=== PATIENT | female | born 1930 | race Caucasian/White ===

== ENCOUNTER 2017-04-11 18:39 | Inpatient (IN) | payer MEDICARE ==
[~2017-04-11] VITALS: Ht 157.5 cm; Wt 64.4 kg
[~2017-04-11 18:39] MED LIST: AMLO10TA2 PO; ASPI-630 PO; ATOR40TA59 PO; CELE200C PO; CHLO25TA PO; HYDR-971 PO; LEVO50TA5 PO
--- NOTE | 2017-04-11 19:11 | PHYS DOC ---
Past History Past Medical History: CAD, Hypertension, Hypothyroid Past Surgical History: Knee Replacement, Other Smoking: Non-smoker Alcohol Use: None Drug Use: None Adult General Chief Complaint Chief Complaint: WEAKNESS/GENERALIZED HPI HPI Patient is a 86 year old female who presents with dizziness and weakness for the past 2 days. Patient states she woke up yesterday feeling dizzy and did not like the bed and therefore saw her family doctor's nurse practitioner and was diagnosed vertigo and sent home. The dizziness has persisted and therefore family brought her the emergency room to be evaluated. Patient has associated nausea and vomiting. Patient denies fevers. Patient states the dizziness is positional and when she lays down she feels fine however when she gets up she feels the room moving and unsteady on her feet. Patient had episode of this around and she ended up falling and breaking her ankle. Patient denies any chest pain or shortness of breath. Patient has no other complaints. Pertinent findings: Heart regular rate and rhythm Lungs clear to auscultation bilaterally ED course: Patient is seen upon arrival a CBC, CMP, UA, troponin, EKG, chest x-ray, CT of the head without contrast was ordered 2044: Patient was reevaluated and still dizzy when she sits up, discussed lab results and radiological results with the patient and plan to admit. 2055: Discussed CC/HP/PMH with Dr. Watkins and recommends admit also would like neurology consultation Pertinent findings: Potassium 2.9 CT scan of head unremarkable MDM: After reviewing the chart, CC/HPI/PMH, physical exam, lab results, radiological results, I believe the patient needs to be admitted to the hospital for persistent dizziness and hypokalemia. Replace the potassium starting the emergency room with 40 mEq by mouth and will admit the patient for further evaluation. Review of Systems Review of Systems Constitutional: Weakness, dizziness Eyes: Denies change in visual acuity, redness, or eye pain [] HENT: Denies nasal congestion or sore throat [] Respiratory: Denies cough or shortness of breath [] Cardiovascular: No additional information not addressed in HPI [] GI: Nausea and vomiting : Denies dysuria or hematuria [] Musculoskeletal: Denies back pain or joint pain [] Integument: Denies rash or skin lesions [] Current Medications Current Medications Current Medications Medications (Trade) Dose Ordered Sig/Martin Start Time Stop Time Status Last Admin Dose Admin Meclizine HCl (Antivert) 25 mg 1X ONCE 04/11/17 19:15 04/11/17 19:16 Sodium Chloride 1,000 ml @ 1,000 mls/hr 1X ONCE 04/11/17 19:15 04/11/17 20:14 UNV Allergies Allergies Allergies Coded Allergies Type Severity Reaction Last Updated Verified pregabalin Allergy Intermediate 10/20/16 Yes Physical Exam Physical Exam Constitutional: Well developed, well nourished, no acute distress, non-toxic appearance. [] HENT: Normocephalic, atraumatic, bilateral external ears normal, oropharynx moist, no oral exudates, nose normal. [] Eyes: PERRLA, EOMI, conjunctiva normal, no discharge. [] Neck: Normal range of motion, no tenderness, supple, no stridor. [] Cardiovascular:Heart rate regular rhythm, no murmur [] Lungs & Thorax: Bilateral breath sounds clear to auscultation [] Abdomen: Bowel sounds normal, soft, no tenderness, no masses, no pulsatile masses. [] Skin: Warm, dry, no erythema, no rash. [] Back: No tenderness, no CVA tenderness. [] Extremities: No tenderness, no cyanosis, no clubbing, ROM intact, no edema. [] Neurologic: Alert and oriented X 3, normal motor function, normal sensory function, no focal deficits noted. [] Psychologic: Affect normal, judgement normal, mood normal. [] Current Patient Data Lab Results Laboratory Tests Test 04/11/17 19:45 04/11/17 20:15 04/11/17 20:37 White Blood Count 13.4 x10^3/uL (4.0-11.0) Red Blood Count 4.59 x10^6/uL (3.50-5.40) Hemoglobin 14.0 g/dL (12.0-15.5) Hematocrit 41.1 % (36.0-47.0) Mean Corpuscular Volume 89 fL (79-100) Mean Corpuscular Hemoglobin 31 pg (25-35) Mean Corpuscular Hemoglobin Concent 34 g/dL (31-37) Red Cell Distribution Width 14.1 % (11.5-14.5) Platelet Count 294 x10^3/uL (140-400) Neutrophils (%) (Auto) 85 % (31-73) Lymphocytes (%) (Auto) 9 % (24-48) Monocytes (%) (Auto) 5 % (0-9) Eosinophils (%) (Auto) 0 % (0-3) Basophils (%) (Auto) 1 % (0-3) Neutrophils # (Auto) 11.4 x10^3uL (1.8-7.7) Lymphocytes # (Auto) 1.2 x10^3/uL (1.0-4.8) Monocytes # (Auto) 0.6 x10^3/uL (0.0-1.1) Eosinophils # (Auto) 0.0 x10^3/uL (0.0-0.7) Basophils # (Auto) 0.1 x10^3/uL (0.0-0.2) Sodium Level 133 mmol/L (136-145) Potassium Level 2.9 mmol/L (3.5-5.1) Chloride Level 94 mmol/L (98-107) Carbon Dioxide Level 29 mmol/L (21-32) Anion Gap 10 (6-14) Blood Urea Nitrogen 17 mg/dL (7-20) Creatinine 0.7 mg/dL (0.6-1.0) Estimated GFR (Cockcroft-Gault) 79.5 BUN/Creatinine Ratio 24 (6-20) Glucose Level 115 mg/dL (70-99) Calcium Level 9.2 mg/dL (8.5-10.1) Total Bilirubin 1.2 mg/dL (0.2-1.0) Aspartate Amino Transf (AST/SGOT) 16 U/L (15-37) Alanine Aminotransferase (ALT/SGPT) 15 U/L (14-59) Alkaline Phosphatase 111 U/L (46-116) Troponin I Quantitative < 0.017 ng/mL (0-0.055) Total Protein 7.3 g/dL (6.4-8.2) Albumin 3.6 g/dL (3.4-5.0) Albumin/Globulin Ratio 1.0 (1.0-1.7) Urine Collection Type Unknown Urine Color Yellow Urine Clarity Clear Urine pH 7.0 Urine Specific [place] 1.015 Urine Protein Trace (NEG-TRACE) Urine Glucose (UA) Neg mg/dL (NEG) Urine Ketones (Stick) 15 mg/dL (NEG) Urine Blood Neg (NEG) Urine Nitrite Neg (NEG) Urine Bilirubin Neg (NEG) Urine Urobilinogen Dipstick 1 mg/dL (0.2 mg/dL) Urine Leukocyte Esterase Trace (NEG) Urine RBC 1-2 /HPF (0-2) Urine WBC 1-4 /HPF (0-4) Urine Squamous Epithelial Cells Few /LPF Urine Bacteria Few /HPF (0-FEW) EKG EKG Normal sinus rhythm rate of 65 and no STEMI Radiology/Procedures Radiology/Procedures CXR: NAD CT head wo: NAD Course & Med Decision Making Course & Med Decision Making Pertinent Labs and Imaging studies reviewed. (See chart for details) [] Dragon Disclaimer Dragon Disclaimer This chart was dictated in whole or in part using Voice Recognition software in a busy, high-work load, and often noisy Emergency Department environment. It may contain unintended and wholly unrecognized errors or omissions. Departure Departure: Impression: Primary Impression: Dizziness Additional Impression: Hypokalemia Disposition: ADMITTED INPATIENT Admitting Physician: Sushila Watkins Condition: STABLE Referrals: ALINE MONTANEZ MD (PCP) Problem Qualifiers TISHA SHULTZ DO April 11, 2017 19:11
[2017-04-11] MEDS ORDERED: MECLIZINE 25 MG TABLET PO ONE (19:15)
[2017-04-11] MEDS ORDERED: IV NORMAL SALINE 1,000ML 1,000 ML IV ONE (19:15)
--- NOTE | 2017-04-11 19:17 | EKG ---
[address] [address] Test Date: 2017-04-11 Test Time: 19:15:43 Pat Name: SAMANTHA GOTTI Department: Room: Gender: F [employer] Associate: : 1930 Requested By: TISHA SHULTZ Order Number: [id number] Reading MD: Manpreet Villafana Measurements Intervals [place] Rate: 65 P: 42 [place]: 182 QRS: -28 QRSD: 96 T: 50 QT: 410 QTc: 427 Interpretive Statements SINUS RHYTHM LEFTWARD AXIS Electronically Signed On 04-16-2017 9:43:10 CDT by Manpreet Villafana
[2017-04-11 20:00] LABS: BASO # 0.1 x10^3/uL (0.0-0.2); BASO % 1 % (0-3); EOS % 0 % (0-3); HEMATOCRIT 41.1 % (36.0-47.0); LYMPH # 1.2 x10^3/uL (1.0-4.8); LYMPH % 9 % (24-48); MEAN CORPUSCULAR HEMOGLOBIN 31 pg (25-35); MEAN CORPUSCULAR HGB CONC 34 g/dL (31-37); MEAN CORPUSCULAR VOLUME 89 fL (79-100); MONO # 0.6 x10^3/uL (0.0-1.1); MONO % 5 % (0-9); NEUT # 11.4 x10^3uL (1.8-7.7); NEUT % 85 % (31-73); PLATELET COUNT 294 x10^3/uL (140-400); RED BLOOD COUNT 4.59 x10^6/uL (3.50-5.40); RED CELL DISTRIBUTION WIDTH 14.1 % (11.5-14.5); WHITE BLOOD COUNT 13.4 x10^3/uL (4.0-11.0)
--- NOTE | 2017-04-11 20:20 | RAD ---
CT HEAD WO CONTRAST History: [id number] dizziness, hypertension, TIA. Comparison: None available at this time. Technique: Noncontrast [address] images were acquired from the skull base to the vertex. Exposure: One or more of the following individualized dose reduction techniques were utilized for this examination: 1. Automated exposure control 2. Adjustment of the mA and/or kV according to patient size 3. Use of iterative reconstruction technique. Findings: There is motion degradation. No convincing acute extra-axial or parenchymal hemorrhage is identified. There is no significant intra-axial mass effect, midline shift, or extra-axial fluid collection. The barrett-white differentiation of the major vascular territories is preserved. Ventricular size is considered within normal limits. Cerebral volume can be considered within normal limits for patient's age. There is mild ill-defined low-density centers near the frontal horns bilaterally. There has been lens surgery bilaterally. There is atherosclerotic calcification of the carotid siphons bilaterally. The mastoid air cells and the visualized paranasal sinuses are aerated. No acute calvarial abnormality is identified. Impression: 1. No acute intracranial abnormality is identified. If there is concern for evolving or acute ischemia, followup CT or MRI could be beneficial. Mild ill-defined low density of the supratentorial white matter is nonspecific although most commonly due to chronic microvascular ischemic disease in a patient this age. Electronically signed by: Vincent Costello MD (04/11/2017 8:17 PM)
[2017-04-11 20:46] LABS: ALBUMIN 3.6 g/dL (3.4-5.0); CALCIUM 9.2 mg/dL (8.5-10.1); CREATININE 0.7 mg/dL (0.6-1.0); GFR 79.5; TOTAL BILIRUBIN 1.2 mg/dL (0.2-1.0); TOTAL PROTEIN 7.3 g/dL (6.4-8.2)
[2017-04-11 20:48] LABS: POTASSIUM 2.9 mmol/L (3.5-5.1)
[2017-04-11 21:02] LABS: BILIRUBIN,URINE NEG (NEG); CLARITY,URINE CLEAR; COLOR,URINE YELLOW; GLUCOSE,URINE NEG (NEG)
[2017-04-11 21:03] LABS: BACTERIA,URINE FEW /HPF (0-FEW); NITRITE,URINE NEG (NEG); SQUAMOUS EPITHELIAL CELL,UR FEW /LPF; UROBILINOGEN,URINE 1 mg/dL (0.2 mg/dL)
[2017-04-11] MEDS ORDERED: POTASSIUM CHLORIDE 20 MEQ TABLET.ER. PO ONE ×2 (21:14→21:15)
[2017-04-11] MEDS ORDERED: ONDANSETRON PF 4 MG/2 ML VIAL. IV PRN (21:15)
[2017-04-11] MEDS ORDERED: ACETAMINOPHEN 325 MG TABLET PO PRN (21:15)
[2017-04-11] MEDS ORDERED: MORPHINE SULFATE 2 MG/ML DISP.SYRIN. IV PRN (21:15)
[2017-04-11 22:00] VITALS: BP 153/86
[2017-04-11] MEDS: ATORVASTATIN CALCIUM 20 MG TABLET PO SCH (22:00)
[2017-04-11] MEDS ORDERED: MECL25TA3 PO (22:02)
[2017-04-11] MEDS ORDERED: HYDROcodone/APAP 5/325MG 1 TAB TABLET PO PRN (22:15)
[2017-04-12] VITALS (7 sets, daily range): BP systolic 102–148; BP diastolic 54–68
--- NOTE | 2017-04-12 03:14 | ACF ---
Admission Criteria Forms HYPONATREMIA; HYPERNATREMIA; HYPOKALEMIA; HYPERKALEMIA; HYPOCALCEMIA; HYPERCALCEMIA Clinical Indications for Inpatient Care (Place 'X' for any and all applicable criteria): Ongoing inpatient care may be indicated for ANY ONE of the following [G](1)(2)(3 )(5): [ ]I. Hyponatremia with ANY ONE of the following: [ ]a) Sodium less than 130 mEq/L (mmol/L) (new) (6)(22) [ ]b) Sodium less than 135 mEq/L (mmol/L) with ANY ONE of the following: [ ]i) Severe medical etiology requiring inpatient management (eg, heart failure, hypovolemia) [ ]ii) Altered mental status [ ]iii) Seizures [ ]II. Hypernatremia with ANY ONE of the following: [ ]a) Sodium greater than 155 mEq/L (mmol/L) [ ]b) Sodium greater than 150 mEq/L (mmol/L) with ANY ONE of the following: [ ] i) Altered mental status [ ]ii) Seizures [ ]iii) Severe medical etiology (eg, hypovolemia, diabetes insipidus) [ ]iv) Severe weakness [ ]v) Severe medical etiology (eg, hemolysis, infection, drug overdose) [X ]III. Hypokalemia with ANY ONE of the following: [ ]a) Potassium less than 2.5 mEq/L (mmol/L) despite outpatient and emergency treatment [X ]b) Potassium less than 3.0 mEq/L (mmol/L) with ANY ONE of the following: [X ]i) Weakness [ ]ii) Cardiac abnormality (eg, arrhythmia, conduction disturbance) [ ]iii) Cardiac ischemia [ ]iv) Ileus [ ]v) Ongoing medical cause requiring inpatient management. ( e.g., acute renal wasting, SIADH) [ ]vi) Other severe symptoms [ ] IV. Hyperkalemia with ANY ONE of the following: [ ]a) Potassium greater than 6.5 mEq/L (mmol/L) [ ]b) Potassium greater than 5 mEq/L (mmol/L) with ANY ONE of the following: [ ]i) Severe ECG findings [H] [ ]ii) Acute worsening of renal failure (creatinine greater than 2.5 mg/dL (221 micromoles/L) or significant elevation for age and size) [ ] V. Hypocalcemia with ANY ONE of the following: [ ]a) Calcium less than 7 mg/dL (1.75 mmol/L) despite outpatient and emergency treatment(19) [ ]b) Calcium less than 8 mg/dL (2 mmol/L) with significant symptoms or findings; examples include: [ ]i) Cardiac abnormality (eg, arrhythmia or conduction disturbance) [ ]ii) Altered mental status [ ]iii) Seizures [ ]iv) Breathing difficulty [ ]v) Muscle spasms [ ]. Hypercalcemia with ANY ONE of the following: [ ]a) Calcium greater than 14 mg/dL (3.5 mmol/L) [ ]b) Calcium greater than 12 mg/dL (3 mmol/L) with ANY ONE of the following: [ ]i) Significant dehydration or hypovolemia as indicated by ANY ONE of the following(2): [ ]1. Clinically significant dehydration as indicated by ANY ONE of the following: [ ]A. Acute loss of weight from baseline (5% of body weight in adults, 9% in pediatric patients) [ ]B. Hemodynamic instability [ ]C. Acute renal failure [ ]D. Serum sodium greater than 150 mEq/L (mmol/L) [ ]2) Dehydration that is persistent indicated by ALL of the following: [ ]A. Oral rehydration therapy not tolerated or insufficient to adequately correct dehydration [ ]B. Appropriate intravenous treatment (eg, fluids ) does not readily correct dehydration ie, after 12 to 24 hours of treatment) [ ]ii) Significant symptoms or findings; examples include: [ ]1) Altered mental status [ ]2) Cardiac abnormality (eg, arrhythmia, conduction disturbance) [ ]3) Cardiac abnormality (eg, arrhythmia, conduction disturbance) The original [facility] content created by [facility] [employer] has been revised. The portions of the content which have been revised are identified through the use of italic text or in bold, and [facility] has neither reviewed nor approved the modified material. All other unmodified content is copyright [facility] Please see references footnoted in the original [facility] [employer] edition 2016 Admission Criteria Met?: Yes TAMICA GUPTA April 12, 2017 03:14
[2017-04-12] MEDS: LEVOTHYROXINE 25 MCG TABLET. PO SCH (06:02)
[2017-04-12 06:21] LABS: BASO # 0.1 x10^3/uL (0.0-0.2); BASO % 1 % (0-3); EOS # 0.1 x10^3/uL (0.0-0.7); EOS % 1 % (0-3); HEMATOCRIT 36.7 % (36.0-47.0); HEMOGLOBIN 12.5 g/dL (12.0-15.5); LYMPH # 1.9 x10^3/uL (1.0-4.8); LYMPH % 23 % (24-48); MEAN CORPUSCULAR HEMOGLOBIN 31 pg (25-35); MEAN CORPUSCULAR HGB CONC 34 g/dL (31-37); MEAN CORPUSCULAR VOLUME 91 fL (79-100); MONO # 0.7 x10^3/uL (0.0-1.1); MONO % 9 % (0-9); NEUT # 5.4 x10^3uL (1.8-7.7); NEUT % 66 % (31-73); PLATELET COUNT 247 x10^3/uL (140-400); RED BLOOD COUNT 4.02 x10^6/uL (3.50-5.40); RED CELL DISTRIBUTION WIDTH 14.3 % (11.5-14.5); WHITE BLOOD COUNT 8.2 x10^3/uL (4.0-11.0)
[2017-04-12 06:26] LABS: CREATININE 0.6 mg/dL (0.6-1.0); POTASSIUM 3.8 mmol/L (3.5-5.1)
--- NOTE | 2017-04-12 08:13 | RAD ---
Indication dizzy. Suspect CVA. Protocol exam. PA and lateral views of the chest were obtained. Comparison is made to an examination 08/16/2013. The heart and pulmonary vessels appear normal. The lungs are clear of acute infiltrates. There has not been a significant change in the appearance of the chest compared to the previous exam. IMPRESSION: No acute or focal process. No significant change
[2017-04-12] MEDS: CELECOXIB 200 MG CAPSULE PO SCH (08:24)
[2017-04-12] MEDS: ASPIRIN 81 MG TAB.CHEW PO SCH (08:24)
[2017-04-12] MEDS: MECLIZINE 25 MG TABLET PO SCH ×3 (08:24→21:07)
[2017-04-12] MEDS: amLODIPine BESYLATE 10 MG TABLET PO SCH (08:24)
[2017-04-12] MEDS: CHLORTHALIDONE 25 MG TABLET PO SCH (08:25)
[2017-04-12] MEDS ORDERED: PRIMIDONE 50 MG TABLET PO ONE (10:30)
--- NOTE | 2017-04-12 14:59 | CONS ---
DATE OF CONSULTATION: 04/12/2017 NEUROLOGIC CONSULTATION REFERRING PHYSICIAN: Sushila Watkins MD REASON FOR CONSULTATION: Severe dizziness. HISTORY OF PRESENT ILLNESS: This is an 86-year-old right-handed female who was admitted to Emergency Room yesterday after she presented with 2-day history of dizziness described as "spinning." The dizzy spell was associated with nausea and vomiting. She was initially seen in the primary care physician's office and she was diagnosed with vertigo and sent home, but because of continuation of dizziness and nausea, the patient went to Emergency Room and got admitted. The patient stated her dizziness usually aggravated by changing her body positions quickly from sitting to standing. She would have dizzy spells in upright positions. She never had any dizzy spell when she sits or lies down in bed. She denies headaches, visual disturbances, chest pain, shortness of breath or palpitation, dysarthria or dysphagia. She also complains of generalized weakness and she related that to multiple problems including osteoarthritis and osteoporosis along with left hip replacement and bilateral total knee replacements as well. The patient denies any recent falls; however, she did have a fall last year, presented with fracture of the left ankle. Initial head CT scan revealed no evidence of acute intracranial process, but shows mild chronic small vessel ischemic changes. Today, the patient stated her dizzy spells has somewhat improved after she received meclizine; however, she continues to have imbalance on upright positions. PAST MEDICAL HISTORY: Significant for hypertension, hyperlipidemia, hypothyroidism, osteoarthritis and osteoporosis. PAST SURGICAL HISTORY: Consistent with left hip fracture repair and bilateral total knee replacements. SOCIAL HISTORY: The patient lives independently. She denies smoking, alcohol drinking, or illicit drugs. She drives. FAMILY HISTORY: Her brother had tremor of the hands and 2 sisters had dementia of Alzheimer type. CURRENT HOME MEDICATIONS: Amlodipine 10 mg daily, aspirin 81 mg daily, Lipitor 40 mg daily, Celebrex 20 mg daily, hydrochlorothiazide 25 mg daily, hydrocodone and acetaminophen 5/325 p.r.n., levothyroxine 50 mcg daily and currently, the patient was placed on meclizine 25 mg t.i.d. ALLERGIES: PREGABALIN. REVIEW OF SYSTEMS: A 10-point review of system was performed and consistent with unsteady stance, dizziness, and tremor of the head, joint pain. PHYSICAL EXAMINATION: GENERAL: Well-developed, well-nourished white female, not in acute distress. She weighs 140 pounds. VITAL SIGNS: Blood pressure 126/65, respiratory rate 20, pulse is 75, oxygen saturation 96% on room air and temperature 98.3. HEENT: Normocephalic, atraumatic, otherwise unremarkable. NECK: Supple. Negative for carotid bruit, lymphadenopathy or thyromegaly. LUNGS: Clear to A and P. CARDIOVASCULAR: Regular rate and rhythm, normal S1, S2. There is no S3, S4 or murmur. ABDOMEN: Soft. Bowel sounds positive. EXTREMITIES: Negative for cyanosis, clubbing or pitting edema. NEUROLOGIC: 1. MENTAL STATUS: The patient is alert and oriented x 3. Speech is fluent. There is no language dysfunction. The patient recalls 2/3 immediately and after 1 and 3 minutes. Judgment and abstract thinking are normal. The patient denies hallucination or delusion. 2. CRANIAL NERVES: Visual farris are full. The pupils are reactive to light and accommodation. The extraocular movements are intact. There is no nystagmus. There is no facial motor or sensory deficit. Hearing is intact bilaterally. The palate is elevated symmetrically. Sternocleidomastoid muscles are powerful bilaterally. The patient shrugs her shoulders symmetrically and protrudes her tongue in the midline without fasciculation or atrophy. 3. MOTOR EXAMINATION: No focal muscle bulk was seen. The tone is normal. The strength is 5/5 throughout. The patient had constant head tremor. She does not have postural, resting or kinetic tremors of the upper extremities. Sensory examination revealed diminished pinprick and light touch senses in both lower extremities below the knee. Deep tendon reflexes are symmetric and active with absent Achilles responses bilaterally. Gait: The stance is unsteady. Romberg's sign was present bilaterally. The patient has abnormal tandem gait. Coordination: The patient has normal [id number]-mpax and [id number]. IMAGING: Chest x-ray revealed no evidence of acute cardiopulmonary process and head CT scan revealed no evidence of acute intracranial process but shows mild small vessel ischemic changes. LABORATORY DATA: CBC revealed white blood cells of 8200, hemoglobin 12.5, hematocrit 36.7 and platelet count 247,000. Chemistry revealed sodium of 136, potassium 3.8, chloride 99, CO2 of 29, BUN 14, creatinine 0.6, glucose 84 and calcium is 9. Urinalysis, trace of urinary leukocyte esterase with normal white blood cells and few bacteria. IMPRESSION: 1. Acute vertigo. Differential diagnosis includes vestibulitis versus paroxysmal benign positional vertigo. 2. 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 3. Multiple medical problems include hypertension, hyperlipidemia, hypothyroidism, osteoarthritis and osteoporosis. RECOMMENDATIONS: 1. Continue with current management initiated by Dr. Watkins including meclizine, bedrest, physical therapy as tolerated. 2. Start the patient on primidone for head tremor at 50 mg at bedtime. 3. We will obtain orthostatic changes and encourage fluid intake. M Alexa CORONA MD DR: FAYE/yvonne JOB#: [id number] / [id number]
--- NOTE | 2017-04-12 19:44 | HP ---
ADMIT DATE: 04/12/2017 HISTORY OF PRESENT ILLNESS: The patient is an 86-year-old female patient who came to the Emergency Room with a complaint of dizziness and weakness for the past 2 days. She states that she woke up feeling dizzy, did not like the bed and therefore saw her family doctor's nurse practitioner, diagnosed with vertigo and was sent home. The dizziness has persisted and therefore, her family brought her to the Emergency Room for evaluation. She said that she feel the things are spinning around. She has also some nausea and vomiting, but denied any fever. Her dizziness is positional; when she lies down, she feels fine. However, when she gets up, she feels the room is moving and unsteady on her feet. She had a similar episode around Thanksgiving and she ended up falling and breaking her ankle. She denied any chest pain, shortness of breath, orthopnea, paroxysmal nocturnal dyspnea. Denied any cough, phlegm, or hemoptysis. She was extensively evaluated in the Emergency Room and was admitted for further evaluation and to consult the neurologist. PAST MEDICAL HISTORY: Significant for hypertension, hyperlipidemia, hypothyroidism. She had an episode of transient ischemic attack about 4 years ago and she is known to have generalized osteoarthritis. PAST SURGICAL HISTORY: Significant for left total hip arthroplasty, bilateral total knee arthroplasty, tonsillectomy, and appendectomy. ALLERGIES: She is allergic to LYRICA. MEDICATIONS: She is currently on following medications: Amlodipine 10 mg once a day, aspirin 81 mg once a day, atorvastatin calcium 40 mg at bedtime, Celebrex 100 mg once a day, chlorthalidone 25 mg once a day, hydrocodone/APAP 5/325 one tablet every 6 hours, levothyroxine sodium 25 mcg once a day, and meclizine 25 mg 3 times a day. FAMILY HISTORY: One sister in her 70s because of cerebrovascular accident. Her brother also at the age of 70 because of complication of obesity and cerebrovascular accident. Mother at the age of 60 again with stroke and father at age of 69 because of stroke. SOCIAL HISTORY: She is . She has 1 daughter. She has never smoked, drank alcohol, or used any illicit drugs. 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 REVIEW OF SYSTEMS: She denied any blurring of vision, cataract, glaucoma, or macular degeneration. Denied any earache, tinnitus, or sensorineural deafness. Denied any nosebleeds, stuffy nose, or postnasal drip. Denied any sore throat, sore tongue, toothache, hoarseness of voice, or difficulty swallowing. Did complain of some nausea and vomiting, but denied any diarrhea or constipation. Denied any hematemesis, melena, or hematochezia. Denied any dysuria, frequency, or hematuria. Denied any chest pain, shortness of breath, orthopnea, paroxysmal nocturnal dyspnea. Denied any cough, phlegm, or hemoptysis. PHYSICAL EXAMINATION: GENERAL: On arrival to the Emergency Room, she looked well and was clearly in no apparent respiratory distress. She was somewhat pale, but no jaundice, cyanosis, or thyromegaly. No jugular venous distention. No limb edema. VITAL SIGNS: Her heart rate was 69, blood pressure was 124/72, temperature was 98, respiratory rate was 20, and oxygen saturation was 96% on room air. HEAD, EYES, EARS, NOSE AND THROAT: Showed normocephalic, atraumatic. NECK: Supple. HEART: Showed normal first and second heart sounds with no gallop, rub or murmur. CHEST: Clear to auscultation. No crepitation or rhonchi. ABDOMEN: Distended, soft, nontender. No guarding... DICTATION ENDS HERE ELENA DOCKERY MD DR: MALIA/yvonne JOB#: [id number] / [id number]
[2017-04-12] MEDS: PRIMIDONE 50 MG TABLET PO SCH ×2 (21:00→21:07)
[2017-04-12] MEDS: POTASSIUM CHLORIDE 20 MEQ TABLET.ER. PO SCH (21:07)
[2017-04-12] MEDS: ATORVASTATIN CALCIUM 20 MG TABLET PO SCH (21:07)
[2017-04-13] MEDS: LEVOTHYROXINE 25 MCG TABLET. PO SCH (05:26)
[2017-04-13 05:30] VITALS: BP 111/63
[2017-04-13 06:06] LABS: CALCIUM 8.7 mg/dL (8.5-10.1); CREATININE 0.6 mg/dL (0.6-1.0); POTASSIUM 3.3 mmol/L (3.5-5.1)
[2017-04-13] MEDS: ASPIRIN 81 MG TAB.CHEW PO SCH (08:34)
[2017-04-13] MEDS: POTASSIUM CHLORIDE 20 MEQ TABLET.ER. PO SCH (08:34)
[2017-04-13] MEDS: amLODIPine BESYLATE 10 MG TABLET PO SCH (08:34)
[2017-04-13] MEDS: MECLIZINE 25 MG TABLET PO SCH (08:34)
[2017-04-13] MEDS: CELECOXIB 200 MG CAPSULE PO SCH (08:35)
[2017-04-13] MEDS: CHLORTHALIDONE 25 MG TABLET PO SCH (08:35)
--- NOTE | 2017-04-13 10:02 | PN ---
DATE: 04/12/2017 SUBJECTIVE: The patient is resting, slightly propped up in bed, in no apparent respiratory distress. She continues to complain of feeling dizzy, although she has no further episodes of nausea, vomiting. She worked with physical therapy and apparently she continues to be somewhat unsteady. PHYSICAL EXAMINATION: GENERAL: When I examined her this afternoon, she looked well and was clearly in no apparent respiratory distress. VITAL SIGNS: Her heart rate was 77, blood pressure 148/68, temperature was 98, respiratory rate was 20, and oxygen saturation was 95% on room air. HEAD, EYES, EARS, NOSE AND THROAT: Normocephalic, atraumatic. NECK: Supple. HEART: Showed normal first and second heart sounds with no gallop, rub or murmur. CHEST: Clear to auscultation. No crepitation or rhonchi. ABDOMEN: Distended, soft, nontender. No guarding or rigidity. No organomegaly. All hernial orifices intact. Bowel sounds normal. NEUROLOGIC: She is awake, alert, responding appropriately. Cranial nerves intact. She moves extremities without difficulty. She ambulates with assistance. Her intake was 1100, output was 300. LABORATORY DATA: Her lab work as of this morning showed that her white cell count is 8200, hemoglobin 12.5, hematocrit 36.7, MCV 91, and platelet count of 247,000. Her chemistry showed a serum sodium 136, potassium 3.8, chloride 99, bicarbonate 29, anion gap of 8, BUN 14, creatinine 0.6, estimated GFR was 95 mL per minute. Her glucose was 84, calcium was 9. ASSESSMENT: Acute labyrinthitis versus benign paroxysmal positional vertigo. PLAN: Continue with her current medication, will probably add potassium supplement as she is on chlorthalidone 25 mg once a day without any potassium supplement and will continue with physical and occupational therapy and we will see how she does tomorrow and if she managed to walk without assistance and if there are no further unsteadiness, she can go home to be followed as an outpatient. ELENA DOCKERY MD DR: MALIA/yvonne JOB#: [id number] / [id number]
[2017-04-13 11:16] VITALS: BP 113/64
[2017-04-13] MEDS ORDERED: POTA20TA4 PO (12:03)
--- NOTE | 2017-04-13 21:34 | DS ---
DATE OF DISCHARGE: 04/13/2017 HOSPITAL COURSE: The patient is an 86-year-old female patient who was admitted with the complaint of dizziness and feeling things spinning around. She also had some nausea and was evaluated in the Emergency Room and had had a CT scan which was unremarkable. Lab work also was unremarkable except marked hypokalemia and it transpired that she is on thiazide diuretics without any potassium supplement. She was started on meclizine and actually she apparently did very well, was seen by Dr. Freeman who apparently was agreeable with this treatment. He added also primidone but the patient did not like the effect of primidone in her and refused to take it. She was evaluated by physical therapy and has done well and has been up and about, walking with a walker without difficulty. She had a walker at home and the decision was made to discharge her home, to follow with the physical therapy as an outpatient. PHYSICAL EXAMINATION: GENERAL: When I examined her today, she was resting flat in bed, in no apparent respiratory distress. No pallor, jaundice, cyanosis, lymphadenopathy, or thyromegaly. No jugular venous distention. No limb edema. VITAL SIGNS: Her heart rate was 62, blood pressure 113/64, temperature was 98.2, respiratory rate was 20, and oxygen saturation was 95%. The rest of clinical examination is unremarkable. LABORATORY DATA: Showed that her sodium was 134, potassium 3.3, chloride 97, bicarbonate 30, anion gap of 7, BUN 14, creatinine was 0.6, estimated GFR was 95 mL per minute and calcium was 8.7. Her white cell count was 8200, hemoglobin was 12.5, hematocrit 36.7, MCV 91, and platelet count of 247,000. DISCHARGE MEDICATIONS: She was discharged home to continue on following medications: Potassium chloride 20 mEq 3 times a day, amlodipine 10 mg once a day, aspirin 81 mg once a day, atorvastatin calcium 40 mg at bedtime, Celebrex 200 mg once a day, chlorthalidone 25 mg once a day, hydrocodone/APAP 5/325 mg one tablet every 6 hours as needed, levothyroxine sodium 50 mcg once a day and meclizine 25 mg 3 times a day. FINAL DISCHARGE DIAGNOSES: Acute labyrinthitis versus benign positional paroxysmal vertigo. The patient has multiple other medical problems including hypertension, hyperlipidemia, hypothyroidism, osteoarthritis and osteoporosis. ELENA DOCKERY MD DR: MALIA/yvonne JOB#: [id number] / [id number]
== END 2017-04-13 13:00 | disposition home or self-care (01) | DRG 149 ==
LOC: ER 18:39 → ICU 21:11
PROVIDERS: ADMIT Internal Medicine; ATTEND Internal Medicine
DX: H81.10 Benign paroxysmal vertigo, unspecified ear (principal); H83.09 Labyrinthitis, unspecified ear; E87.6 Hypokalemia; E03.9 Hypothyroidism, unspecified; E78.5 Hyperlipidemia, unspecified; I10 Essential (primary) hypertension; I25.10 Atherosclerotic heart disease of native coronary artery without angina pectoris; M81.0 Age-related osteoporosis without current pathological fracture; M15.9 Polyosteoarthritis, unspecified; G25.2 Other specified forms of tremor; Z96.653 Presence of artificial knee joint, bilateral; Z96.642 Presence of left artificial hip joint; Z82.0 Family history of epilepsy and other diseases of the nervous system; Z82.3 Family history of stroke; Z86.73 Personal history of transient ischemic attack (TIA), and cerebral infarction without residual deficits; Z88.8 Allergy status to other drugs, medicaments and biological substances; Z79.82 Long term (current) use of aspirin
CPT/HCPCS: 36415; 70450; 71020; 80048; 80053; 81001; 84484; 85027; 87641; 93005; 96360; J2405; J8597; 97112; 97530; 99285-25; J7030

== ENCOUNTER 2019-10-22 09:45 | Inpatient (IN) | payer MEDICARE ==
[~2019-10-22] VITALS: Ht 157.5 cm; Wt 64.6 kg
[~2019-10-22 09:45] MED LIST changes: -AMLO10TA2 PO; +AMLO10TA8 PO; -CHLO25TA PO; +CHLO25TA9 PO; +HYDR-3165 PO; -HYDR-971 PO; +MECL25TA3 PO; +POTA20TA4 PO
[2019-10-22] MEDS ORDERED: IV NORMAL SALINE 1,000ML 1,000 ML IV SCH (10:00)
--- NOTE | 2019-10-22 10:11 | PHYS DOC ---
Past History Past Medical History: Arthritis, GERD, High Cholesterol, Hypertension, Hypothyroid, TIA Past Surgical History: Appendectomy, Tonsillectomy, Other Smoking: Non-smoker Alcohol Use: None Drug Use: None Adult General Chief Complaint Chief Complaint: BACK PAIN OR INJURY [facility] HPI Patient is a 89-year-old female, pleasant, who presents to the emergency department for evaluation. She awakened this morning with left-sided pain, in h er left lower rib area, extending from the posterior/lateral aspect of her left chest wall, extending anteriorly around to the right. It is worsened with deep breathing, and palpation to the affected area. She denies any shortness of breath, or abdominal pain. She has not had any nausea, vomiting, hematuria, or dysuria. She denies any recent cough, or injuries. Deep breathing and palpation of the left side of her chest, as well as movement makes the pain worse. There are no alleviating factors to her symptoms. Review of Systems Review of Systems Constitutional: Denies fever or chills [] Eyes: Denies change in visual acuity, redness, or eye pain [] HENT: Denies nasal congestion or sore throat [] Respiratory: Denies cough or shortness of breath [] Cardiovascular: No additional information not addressed in HPI [] GI: Denies abdominal pain, nausea, vomiting, bloody stools or diarrhea [] : Denies dysuria or hematuria [] Musculoskeletal: Denies back pain or joint pain [] Integument: Denies rash or skin lesions [] Neurologic: Denies headache, focal weakness or sensory changes [] Endocrine: Denies polyuria or polydipsia [] All other systems were reviewed and found to be within normal limits, except as documented in this note. Allergies Allergies Allergies Coded Allergies Type Severity Reaction Last Updated Verified pregabalin Allergy Intermediate 10/20/16 Yes Physical Exam Physical Exam PHYSICAL EXAM: CONSTITUTIONAL: Well developed, well nourished HEAD: normocephalic, atraumatic EENT: PERRL, EOMI. Conjunctivae normal color, sclerae non-icteric; moist mucous membranes. NECK: Supple, non-tender; no meningismus. LUNGS: Lungs CTA, breathing even and unlabored. Normal air movement. HEART: Regular rate and rhythm, no murmur CHEST: No deformity; there is significant tenderness to palpation of the left posterior lateral, lateral, and anterior lateral aspect of the left lower costal margin. There is no rash visible on this area, and the skin itself is not tender. There is no crepitus or other bruising or other abnormality noted. ABDOMEN: The abdomen is soft, and non-tender, no masses or bruits. The left upper quadrant of the abdomen in particular is not particularly tender. EXTREM: Normal ROM; no deformity, no calf tenderness. Normal pulses palpable in all extremities. There is no pedal edema. SKIN: No rash; no diaphoresis NEURO: Alert; normal speech and cognition; CN's grossly intact; strength grossly intact without focal deficit. BACK: No CVA TTP.There is no bony tenderness to palpation of the thoracic or lumbar spine. Current Patient Data Lab Results Laboratory Tests Test 10/22/19 10:10 White Blood Count 11.2 x10^3/uL Red Blood Count 4.24 x10^6/uL Hemoglobin 13.0 g/dL Hematocrit 39.0 % Mean Corpuscular Volume 92 fL Mean Corpuscular Hemoglobin 31 pg Mean Corpuscular Hemoglobin Concent 33 g/dL Red Cell Distribution Width 14.8 % Platelet Count 265 x10^3/uL Neutrophils (%) (Auto) 72 % Lymphocytes (%) (Auto) 19 % Monocytes (%) (Auto) 8 % Eosinophils (%) (Auto) 1 % Basophils (%) (Auto) 0 % Neutrophils # (Auto) 8.0 x10^3uL Lymphocytes # (Auto) 2.1 x10^3/uL Monocytes # (Auto) 0.9 x10^3/uL Eosinophils # (Auto) 0.1 x10^3/uL Basophils # (Auto) 0.0 x10^3/uL Prothrombin Time 10.3 SEC Prothromb Time International Ratio 1.0 Sodium Level 138 mmol/L Potassium Level 3.4 mmol/L Chloride Level 100 mmol/L Carbon Dioxide Level 27 mmol/L Anion Gap 11 Blood Urea Nitrogen 16 mg/dL Creatinine 0.7 mg/dL Estimated GFR (Cockcroft-Gault) 79.0 BUN/Creatinine Ratio 23 Glucose Level 95 mg/dL Calcium Level 9.4 mg/dL Total Bilirubin 0.7 mg/dL Aspartate Amino Transf (AST/SGOT) 18 U/L Alanine Aminotransferase (ALT/SGPT) 17 U/L Alkaline Phosphatase 94 U/L Troponin I Quantitative < 0.017 ng/mL Total Protein 7.2 g/dL Albumin 3.5 g/dL Albumin/Globulin Ratio 0.9 Lipase 101 U/L Current Medications Medications (Trade) Dose Ordered Sig/Martin Route PRN Reason Start Time Stop Time Status Last Admin Dose Admin Diazepam (Valium) 2 mg 1X ONCE PO 10/22/19 10:15 10/22/19 10:16 DC Morphine Sulfate (Morphine 2mg Syringe) 2 mg 1X ONCE IV 10/22/19 10:15 10/22/19 10:14 DC Sodium Chloride 1,000 ml @ 100 mls/hr Q10H IV 10/22/19 10:00 10/22/19 19:59 10/22/19 10:32 Iohexol (Omnipaque 350 Mg/ml) 100 ml 1X ONCE IV 10/22/19 10:15 10/22/19 10:16 DC Info (Do NOT chart on this entry -- for MONITORING) 1 each PRN DAILY PRN MC SEE COMMENTS 10/22/19 10:15 10/24/19 10:14 Fentanyl Citrate (Fentanyl 2ml Vial) 50 mcg 1X ONCE IVP 10/22/19 10:15 10/22/19 10:17 DC 10/22/19 10:43 EKG EKG Normal sinus rhythm at a rate of 62 beats for minute, left axis deviation, normal intervals. There are no acute ischemic ST/T changes present. Frequent APCs with a compensatory pause are present.[] Radiology/Procedures Radiology/Procedures PROCEDURE: CT ANGIO CHEST W ABD PEL W/ Clinical Indication: Atraumatic left-sided pleuritic chest pain. PE protocol axial CTA images of the chest was performed along with routine contrast imaging of the abdomen pelvis after the administration of 100 cc Isovue 370. Coronal and sagittal MIP images of the pulmonary arteries are available. Comparison: None. Findings: The partially visualized thyroid gland is normal in appearance. The heart is enlarged. There is calcific coronary artery disease. The descending thoracic aorta measures 4 cm. The great vessel origins are unremarkable in appearance. The descending thoracic aorta is normal. No mediastinal, hilar, or axillary adenopathy is seen. No pneumothorax effusion airspace disease or interstitial disease identified. There is bibasilar atelectasis. In the right lower lobe in the posterior segment there is a small partially obstructive filling defect in the pulmonary artery. Additionally there is a focal filling defect in the superior left upper lobe segment. Liver, gallbladder, adrenals, kidneys and pancreas are unremarkable. The spleen is atrophic. The stomach, small and large bowel are nondistended. No evidence of pathologic wall thickening. Multiple calcified degenerated fibroid identified in the uterus. There are multiple sigmoid diverticula without diverticulitis. There is a small hiatal hernia. Abdominal aorta is densely calcified without significant stenosis or aneurysmal dilation. No radiologically significant retroperitoneal or mesenteric lymphadenopathy. Patient status post total left hip arthroplasty. There is diffuse mild degenerative change of the thoracolumbar spine. Bony structures otherwise unremarkable in appearance. Impression: 1. Right lower lobe and left upper lobe subsegmental nonobstructive pulmonary emboli. 2. 4 cm ascending thoracic aortic aneurysm with cardiomegaly and calcific coronary artery disease. 3. Sigmoid diverticulosis without diverticulitis.[] Course & Med Decision Making Course & Med Decision Making 10:10 AM: Initial evaluation in the emergency Department reveals an 89-year-old female, fairly well preserved, who presents with left flank/back pain which appears to be mostly thoracic pain. It is pleuritic in nature but reproducible with palpation. Clinical suspicion is high for her chest wall etiology of the patient's symptoms, such as a fractured rib a pulled muscle, although the patient's denies recent cough or injury. Other diagnostic considerations, although less likely but more potentially serious, include pulmonary embolism or thoracic abdominal aortic aneurysm. Pre-erupted shingles is also considered, but felt to be less likely due to the lack of cutaneous tenderness to palpation. Labs and imaging will be undertaken to evaluate for possible serious pathological processes. 11:45 AM:The patient's condition remains stable. I spoke with the hospitalist, who accepted the patient to the hospital for further evaluation and treatment. Pertinent Labs and Imaging studies reviewed. (See chart for details) [] Dragon Disclaimer Dragon Disclaimer This electronic medical record was generated, in whole or in part, using a voice recognition dictation system. Departure Departure: Impression: Primary Impression: Pulmonary embolism Disposition: ADMITTED INPATIENT Admitting Physician: Sushila Watkins Condition: STABLE Referrals: ALINE MONTANEZ MD (PCP) ISHAN THAO MD Oct 22, 2019 10:11
[2019-10-22] MEDS ORDERED: IOHEXOL 350 MG/ML 100 ML VIAL. IV ONE (10:15)
[2019-10-22] MEDS ORDERED: MORPHINE SULFATE 2 MG/ML DISP.SYRIN. IV ONE (10:15)
[2019-10-22] MEDS ORDERED: diazePAM 2 MG TABLET PO ONE (10:15)
[2019-10-22] MEDS ORDERED: CONTRAST GIVEN MC PRN (10:15)
[2019-10-22 10:25] LABS: BASO % 0 % (0-3); EOS # 0.1 x10^3/uL (0.0-0.7); EOS % 1 % (0-3); LYMPH # 2.1 x10^3/uL (1.0-4.8); LYMPH % 19 % (24-48); MEAN CORPUSCULAR HEMOGLOBIN 31 pg (25-35); MEAN CORPUSCULAR HGB CONC 33 g/dL (31-37); MEAN CORPUSCULAR VOLUME 92 fL (79-100); MONO # 0.9 x10^3/uL (0.0-1.1); MONO % 8 % (0-9); NEUT % 72 % (31-73); PLATELET COUNT 265 x10^3/uL (140-400); RED BLOOD COUNT 4.24 x10^6/uL (3.50-5.40); RED CELL DISTRIBUTION WIDTH 14.8 % (11.5-14.5); WHITE BLOOD COUNT 11.2 x10^3/uL (4.0-11.0)
[2019-10-22 10:38] LABS: ALBUMIN 3.5 g/dL (3.4-5.0); ALBUMIN/GLOBULIN RATIO 0.9 (1.0-1.7); CALCIUM 9.4 mg/dL (8.5-10.1); CREATININE 0.7 mg/dL (0.6-1.0); POTASSIUM 3.4 mmol/L (3.5-5.1); TOTAL BILIRUBIN 0.7 mg/dL (0.2-1.0); TOTAL PROTEIN 7.2 g/dL (6.4-8.2)
--- NOTE | 2019-10-22 11:44 | RAD ---
Clinical Indication: Atraumatic left-sided pleuritic chest pain. PE protocol axial CTA images of the chest was performed along with routine contrast imaging of the abdomen pelvis after the administration of 100 cc Isovue 370. Coronal and sagittal MIP images of the pulmonary arteries are available. Comparison: None. Findings: The partially visualized thyroid gland is normal in appearance. The heart is enlarged. There is calcific coronary artery disease. The descending thoracic aorta measures 4 cm. The great vessel origins are unremarkable in appearance. The descending thoracic aorta is normal. No mediastinal, hilar, or axillary adenopathy is seen. No pneumothorax effusion airspace disease or interstitial disease identified. There is bibasilar atelectasis. In the right lower lobe in the posterior segment there is a small partially obstructive filling defect in the pulmonary artery. Additionally there is a focal filling defect in the superior left upper lobe segment. Liver, gallbladder, adrenals, kidneys and pancreas are unremarkable. The spleen is atrophic. The stomach, small and large bowel are nondistended. No evidence of pathologic wall thickening. Multiple calcified degenerated fibroid identified in the uterus. There are multiple sigmoid diverticula without diverticulitis. There is a small hiatal hernia. Abdominal aorta is densely calcified without significant stenosis or aneurysmal dilation. No radiologically significant retroperitoneal or mesenteric lymphadenopathy. Patient status post total left hip arthroplasty. There is diffuse mild degenerative change of the thoracolumbar spine. Bony structures otherwise unremarkable in appearance. Impression: 1. Right lower lobe and left upper lobe subsegmental nonobstructive pulmonary emboli. 2. 4 cm ascending thoracic aortic aneurysm with cardiomegaly and calcific coronary artery disease. 3. Sigmoid diverticulosis without diverticulitis. Exposure: One or more of the following individualized dose reduction techniques were utilized for this examination: 1. Automated exposure control 2. Adjustment of the mA and/or kV according to patient size 3. Use of iterative reconstruction technique The findings of the procedure were discussed with Dr. Stringer on 10/22/2019 11:[address] Aneudy Crane. FOR INTERNAL CODING PURPOSES RESULT CODE: (C) Electronically signed by: Aneudy Crane MD (10/22/2019 11:41 AM) [facility]
[2019-10-22 11:48] LABS: BACTERIA,URINE 0 /HPF (0-FEW); BILIRUBIN,URINE NEG (NEG); CLARITY,URINE CLEAR; COLOR,URINE YELLOW; GLUCOSE,URINE NEG (NEG); NITRITE,URINE NEG (NEG); SQUAMOUS EPITHELIAL CELL,UR OCC /LPF; UROBILINOGEN,URINE 0.2 mg/dL (0.2 mg/dL); WBC,URINE RARE /HPF (0-4)
[2019-10-22] MEDS ORDERED: HEPARIN 25,000UTS/500ML PREMIX 500 ML IV PRN ×2 (12:00)
[2019-10-22] MEDS ORDERED: HEPARIN for IV BOLUS 10,000 UNIT/10 ML VIAL. IV ONE (12:00)
[2019-10-22 13:38] VITALS: BP 171/81
[2019-10-22 14:28] VITALS: BP 159/87
[2019-10-22] MEDS ORDERED: POTASSIUM CL 20MEQ IN 0.9%NACL 1,000 ML IV SCH (14:45)
[2019-10-22] MEDS ORDERED: HEPARIN for IV BOLUS 10,000 UNIT/10 ML VIAL. IV PRN ×2 (14:45)
[2019-10-22] MEDS ORDERED: ONDANSETRON PF 4 MG/2 ML VIAL. IV PRN (14:45)
[2019-10-22] MEDS ORDERED: ACETAMINOPHEN 325 MG TABLET PO PRN (14:45)
[2019-10-22] MEDS ORDERED: POTA10TA5 PO (14:55)
--- NOTE | 2019-10-22 17:03 | HP ---
ADMIT DATE: 10/22/2019 HISTORY OF PRESENT ILLNESS: The patient is an 89-year-old female patient who presented to the Emergency Room with a complaint of left-sided chest pain. She was awakened this morning with left-sided chest pain in her left lower rib area. The pain extending from the posterolateral aspect of the left chest wall extending anteriorly around to the right. It is worsened with deep breathing and palpation to the affected area. She denies any shortness of breath or abdominal pain. She has not had any nausea or vomiting. Denied any swelling of her legs. Denied any cough, phlegm or hemoptysis. Denied any fall or trauma. Her chest pain, deep breathing and palpation of the left side of the chest as well as movement makes the pain worse. She was extensively investigated in the Emergency Room and her lab work was mostly unremarkable and the patient underwent a CT scan of the chest, abdomen and pelvis, which basically showed that she has right lower lobe and left upper lobe subsegmental nonobstructive pulmonary emboli and that she has 4 cm ascending thoracic aortic aneurysm with cardiomegaly and calcific coronary artery disease, sigmoid diverticulosis without diverticulitis. The patient was admitted and started on heparin drip and started on pain medication and also we continued her home medication. PAST MEDICAL HISTORY: Significant for hypertension, hyperlipidemia, gastroesophageal reflux disease, osteoarthritis, osteoporosis, hypothyroidism, vitamin D deficiency, TIAs and history of deep vein thrombosis. PAST SURGICAL HISTORY: Significant for facelift and left hip replacement, bilateral knee replacement, appendectomy, tonsillectomy, meniscal excision, colonoscopy. FAMILY HISTORY: Positive for coronary artery disease in her father and mother, hypertension in her father and mother, Alzheimer disease in her sister and TIA in her father. 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 She is , has 1 daughter. She never smoked, does not drink alcohol or use any recreational drugs. REVIEW OF SYSTEMS: Unremarkable. In particular, patient denied any swelling of her legs. Denied any use of any hormone replacement therapy. She has not driven her car for a long time or has been bedridden or flew long distance and she obviously has history of DVT before. PHYSICAL EXAMINATION: GENERAL: On arrival to the Emergency Room, she looked well and was clearly in no apparent respiratory distress. No pallor, jaundice, cyanosis or thyromegaly. No jugular venous distention. No limb edema. VITAL SIGNS: Her heart rate was 69, blood pressure was 128/69, temperature was 98.7, respiratory rate 20, and oxygen saturation was 94%. HEAD, EYES, EARS, NOSE AND THROAT: Showed normocephalic, atraumatic. NECK: Supple. HEART: Showed normal first and second heart sounds with no gallop or murmur. CHEST: Clear to auscultation. No crepitation or rhonchi. ABDOMEN: Distended, soft, nontender. NEUROLOGIC: She is awake, alert, responding appropriately. All cranial nerves intact. She moves extremities without difficulty. She ambulates without assistance or assistive devices. LABORATORY DATA: On arrival showed a white cell count of 11,200, hemoglobin 13, hematocrit 39, MCV 92, and platelet count 265,000. Her serum sodium was 138, potassium 3.4, chloride 100, bicarbonate 27, anion gap of 11, BUN 16, creatinine 0.7, estimated GFR was 79 mL per minute. Her glucose was 95, calcium was 9.4. Total bilirubin, AST, ALT, alkaline phosphatase were normal. Total protein was 7.2, albumin was 3.5. Lipase was 101. Her prothrombin time was 10.3, INR 1, aPTT was 27. Urinalysis was essentially unremarkable. IMPRESSION: In summary, this is an 89-year-old female patient who was admitted with sudden severe left-sided chest pain that is aggravated by taking deep breath and movement and palpation. CT scan of the chest showed that she has right lower lobe and left upper lobe subsegmental nonobstructive pulmonary emboli. She does have also a 4 cm ascending thoracic aortic aneurysm with cardiomegaly and calcific coronary artery disease, sigmoid diverticulosis without diverticulitis. She was started on heparin drip. I will do Doppler ultrasound of both lower extremities. She is obviously a lady with unprovoked PE, raising the possibility of underlying malignancy, although the CT scan of the chest, abdomen and pelvis is so far negative. ELENA DOCKERY MD DR: MALIA/yvonne JOB#: [id number] / [id number]
[2019-10-22 17:41] VITALS: BP 140/73
[2019-10-22 19:27] VITALS: BP 110/64
[2019-10-22] MEDS: APIXABAN 5 MG TABLET. PO SCH (21:20)
[2019-10-22 22:15] VITALS: BP 114/68
[2019-10-23 05:47] VITALS: BP 125/66
[2019-10-23 06:24] LABS: HEMATOCRIT 38.9 % (36.0-47.0); HEMOGLOBIN 13.1 g/dL (12.0-15.5); RED BLOOD COUNT 4.2 x10^6/uL (3.50-5.40); RED CELL DISTRIBUTION WIDTH 14.5 % (11.5-14.5); WHITE BLOOD COUNT 8.1 x10^3/uL (4.0-11.0)
[2019-10-23 06:36] LABS: ALBUMIN 3.2 g/dL (3.4-5.0); ALBUMIN/GLOBULIN RATIO 0.9 (1.0-1.7); C REACTIVE PROTEIN 7.7 mg/L (0-3.3); CREATININE 0.7 mg/dL (0.6-1.0); POTASSIUM 3.6 mmol/L (3.5-5.1); TOTAL BILIRUBIN 1.2 mg/dL (0.2-1.0); TOTAL PROTEIN 6.7 g/dL (6.4-8.2)
[2019-10-23] MEDS ORDERED: LEVO75TA PO (07:12)
[2019-10-23] MEDS ORDERED: POTASSIUM CHLORIDE 10 MEQ TABLET.ER. PO SCH (08:00)
[2019-10-23] MEDS: APIXABAN 5 MG TABLET. PO SCH (08:09)
--- NOTE | 2019-10-23 08:18 | EKG ---
[address] [address] Test Date: 2019-10-22 Test Time: 11:38:08 Pat Name: SAMANTHA GOTTI Department: Room: Gender: F Consolidator: : [id number] Requested By: ISHAN THAO Order Number: [id number] Reading MD: Measurements Intervals [place] Rate: 62 P: 90 TN: 178 QRS: -31 QRSD: 78 T: 78 QT: 408 QTc: 416 Interpretive Statements SINUS RHYTHM ATRIAL PREMATURE COMPLEX(ES) ABNORMAL LEFT AXIS DEVIATION CONSIDER LEFT VENTRICULAR HYPERTROPHY T ABNORMALITY IN HIGH LATERAL LEADS ABNORMAL ECG RI6.01 No previous ECG available for comparison
[2019-10-23] MEDS ORDERED: CHLORTHALIDONE 25 MG TABLET PO SCH (09:00)
[2019-10-23] MEDS ORDERED: amLODIPine BESYLATE 10 MG TABLET PO SCH (09:00)
[2019-10-23 11:00] VITALS: BP 122/64
[2019-10-23] MEDS ORDERED: APIX5TAB3 PO (12:59)
[2019-10-23] MEDS ORDERED: ATORVASTATIN CALCIUM 20 MG TABLET PO SCH (21:00)
--- NOTE | 2019-10-23 22:46 | DS ---
DATE OF DISCHARGE: The patient is sitting at the edge of the bed comfortably in no apparent distress. On questioning her, denied any complaint. She has had no more episode of chest pain and wanted to go home. We switched her to Mal yesterday. PHYSICAL EXAMINATION: GENERAL: When I saw her today, she looked well and was clearly in no apparent respiratory distress. No pallor, jaundice, cyanosis, or thyromegaly. No jugular venous distension. No limb edema. VITAL SIGNS: Her heart rate was 70, blood pressure was 122/64, temperature was 97.5, respiratory rate was 19, and oxygen saturation was 95%. HEAD, EYES, EARS, NOSE, AND THROAT: Showed normocephalic and atraumatic. NECK: Supple. HEART: Showed normal first and second heart sounds. No gallop or murmur. CHEST: Clear to auscultation. No crepitation or rhonchi. ABDOMEN: Distended, soft, and nontender. NEUROLOGIC: She is awake, alert, and responding appropriately. All cranial nerves are intact. She moves the extremities without difficulty. She ambulates without assistance or assistive devices. Her intake was 821. No output was recorded. LABORATORY WORK: This morning showed the white cell count of 8100, hemoglobin 13, hematocrit 39, MCV 93, and platelet count 258,000. Her sedimentation rate was only 8 mm per hour. Her chemistry showed a serum sodium of 139, potassium 3.6, chloride 101, bicarbonate 31, anion gap of 7, BUN 11, and creatinine 0.7. Estimated GFR was 79 mL per minute. Her glucose 105 and calcium was 9. Total bilirubin 1.2. AST, ALT, and alkaline phosphatase were normal. Total protein was 6.7 and albumin 3.2. C-reactive protein was 7.7 mg/dL. DISCHARGE MEDICATIONS: The patient was discharged home to continue on apixaban 5 mg twice a day, amlodipine 10 mg once a day, aspirin 81 mg once a day, atorvastatin calcium 40 mg at bedtime, Celebrex 200 mg daily, chlorthalidone 25 mg once a day, hydrocodone/APAP 5/325 one tablet every 6 hours, levothyroxine sodium 75 mcg, and potassium chloride 10 mEq once a day. FINAL DISCHARGE DIAGNOSES: 1. Acute pulmonary embolism. 2. Hypertension. 3. Hyperlipidemia. 4. Gastroesophageal reflux disease. 5. Osteoarthritis and osteoporosis. 6. Hypothyroidism. 7. Vitamin D deficiency. 8. Transient ischemic attack. 9. History of deep vein thrombosis. ELENA DOCKERY MD DR: MALIA/yvonne JOB#: [id number] / [id number]
== END 2019-10-23 14:30 | disposition home or self-care (01) | DRG 176 ==
LOC: ER 09:45 → ICU 13:20 → 1 SOUTH 18:15
PROVIDERS: ADMIT Internal Medicine; ATTEND Internal Medicine
DX: I26.94 Multiple subsegmental thrombotic pulmonary emboli without acute cor pulmonale (principal); E03.9 Hypothyroidism, unspecified; E55.9 Vitamin D deficiency, unspecified; E78.00 Pure hypercholesterolemia, unspecified; E78.5 Hyperlipidemia, unspecified; I11.9 Hypertensive heart disease without heart failure; I25.10 Atherosclerotic heart disease of native coronary artery without angina pectoris; K21.9 Gastro-esophageal reflux disease without esophagitis; K57.30 Diverticulosis of large intestine without perforation or abscess without bleeding; M19.90 Unspecified osteoarthritis, unspecified site; M81.0 Age-related osteoporosis without current pathological fracture; Z82.0 Family history of epilepsy and other diseases of the nervous system; Z82.49 Family history of ischemic heart disease and other diseases of the circulatory system; Z86.718 Personal history of other venous thrombosis and embolism; Z86.73 Personal history of transient ischemic attack (TIA), and cerebral infarction without residual deficits; Z90.49 Acquired absence of other specified parts of digestive tract; Z96.642 Presence of left artificial hip joint; Z96.653 Presence of artificial knee joint, bilateral
CPT/HCPCS: 36415; 71275; 74177; 80053; 81001; 83690; 84484; 85025; 85027; 85610; 85651; 85730; 86140; 93005; 96361; 96365; 96375; 96376; J1644; J3010; 99285-25; J7030

== ENCOUNTER 2019-11-14 11:11 | Emergency (ER) | payer MEDICARE ==
[~2019-11-14 11:11] MED LIST changes: +APIX5TAB3 PO; +LEVO75TA PO; +POTA10TA5 PO
[2019-11-14] MEDS ORDERED: IV NORMAL SALINE 1,000ML 1,000 ML IV SCH (11:39)
[2019-11-14] MEDS ORDERED: ONDANSETRON PF 4 MG/2 ML VIAL. IVP ONE (11:45)
[2019-11-14 11:48] VITALS: BP 143/79
--- NOTE | 2019-11-14 11:48 | PHYS DOC ---
Past History Past Medical History: Arthritis, GERD, High Cholesterol, Hypertension, Hypothyroid, TIA Past Surgical History: Appendectomy, Tonsillectomy, Other Additional Past Surgical Histo: bilat knee replacement; hip replacement Smoking: Non-smoker Alcohol Use: None Drug Use: None Adult General Chief Complaint Chief Complaint: DEHYDRATION HPI HPI Patient is an 89-year-old female who presents with report of having decreased appetite and possibly not taking her medications since the . Patient states that she is just not been feeling well and states that she has pain on the left side of her neck. Patient was recently admitted into the hospital for pulmonary emboli and patient is concerned that the pain in her neck could be a result of the pulmonary emboli. She denies any chest pain or shortness of breath currently. She also denies any abdominal pain, nausea or vomiting. Patient rates pain as moderate to severe. She states that nothing is improving her pain.[] Review of Systems Review of Systems Constitutional: Denies fever or chills [] Respiratory: Denies cough or shortness of breath [] Cardiovascular: No additional information not addressed in HPI [] GI: Denies abdominal pain, nausea, vomiting, bloody stools or diarrhea [] Musculoskeletal: Positive neck pain [] Integument: Denies rash or skin lesions [] All other systems were reviewed and found to be within normal limits, except as documented in this note. Current Medications Current Medications Current Medications Medications (Trade) Dose Ordered Sig/[facility] Start Time Stop Time Status Last Admin Dose Admin Fentanyl Citrate (Fentanyl 2ml Vial) 25 mcg PRN Q15MIN PRN 11/14/19 11:45 11/15/19 11:44 UNV Ondansetron HCl (Zofran) 4 mg 1X ONCE 11/14/19 11:45 11/14/19 11:46 UNV Sodium Chloride 1,000 ml @ 1,000 mls/hr Q1H 11/14/19 11:39 11/14/19 12:38 UNV Allergies Allergies Allergies Coded Allergies Type Severity Reaction Last Updated Verified pregabalin Allergy Intermediate 10/22/19 Yes doxazosin Allergy Unknown 10/22/19 Yes hydrocodone Allergy Unknown 10/22/19 Yes Physical Exam Physical Exam Constitutional: Well developed, well nourished, no acute distress, non-toxic appearance. [] HENT: Normocephalic, atraumatic, bilateral external ears normal, oropharynx moist, no oral exudates, nose normal. [] Eyes: PERRLA, EOMI, conjunctiva normal, no discharge. [] Neck: Normal range of motion, no tenderness, supple, no stridor. [] Cardiovascular: Regular rate and rhythm[] Lungs & Thorax: Bilateral breath sounds clear to auscultation [] Abdomen: Bowel sounds normal, soft, no tenderness. [] Skin: Warm, dry, no erythema, no rash. [] Extremities: No tenderness, no cyanosis, no clubbing, ROM intact. [] Neurologic: Alert and oriented X 3, no focal deficits noted. [] EKG EKG [] Radiology/Procedures Radiology/Procedures [] Course & Med Decision Making Course & Med Decision Making Pertinent Labs and Imaging studies reviewed. (See chart for details) [] Dragon Disclaimer Dragon Disclaimer This electronic medical record was generated, in whole or in part, using a voice recognition dictation system. Departure Departure: Impression: Primary Impression: Dehydration Additional Impression: Neck pain Disposition: 01 HOME, SELF-CARE Condition: STABLE Referrals: ALINE MONTANEZ MD (PCP) Patient Instructions: Dehydration, Adult, Musculoskeletal Pain Scripts Tramadol Hcl (TRAMADOL HCL) 50 Mg Tablet 50 MG PO PRN Q6HRS PRN for PAIN, #12 TAB Prov: DAMARI CANCHOLA Jr. DO 11/14/19 Cyclobenzaprine Hcl (CYCLOBENZAPRINE HCL) 5 Mg Tablet 1 TAB PO TID PRN for MUSCLE SPASMS, #15 TAB Prov: DAMARI CANCHOLA Jr. DO 11/14/19 Problem Qualifiers DAMARI CANCHOLA Jr. DO Nov 14, 2019 11:48
[2019-11-14 11:57] LABS: BASO % 0 % (0-3); EOS % 0 % (0-3); HEMATOCRIT 40.3 % (36.0-47.0); HEMOGLOBIN 13.6 g/dL (12.0-15.5); LYMPH # 0.9 x10^3/uL (1.0-4.8); LYMPH % 6 % (24-48); MEAN CORPUSCULAR HEMOGLOBIN 30 pg (25-35); MEAN CORPUSCULAR HGB CONC 34 g/dL (31-37); MEAN CORPUSCULAR VOLUME 90 fL (79-100); MONO # 1.3 x10^3/uL (0.0-1.1); MONO % 8 % (0-9); NEUT # 13.3 x10^3uL (1.8-7.7); NEUT % 86 % (31-73); PLATELET COUNT 307 x10^3/uL (140-400); RED BLOOD COUNT 4.48 x10^6/uL (3.50-5.40); RED CELL DISTRIBUTION WIDTH 13.9 % (11.5-14.5); WHITE BLOOD COUNT 15.5 x10^3/uL (4.0-11.0)
--- NOTE | 2019-11-14 12:00 | EKG ---
[address] [address] Test Date: 2019-11-14 Test Time: 11:59:20 Pat Name: SAMANTHA GOTTI Department: Room: Gender: F Inflated Pad Buffer: : 1930 Requested By: DAMARI CANCHOLA Order Number: [id number] Reading MD: Manpreet Villafana MD Measurements Intervals [place] Rate: 66 P: 52 NE: 186 QRS: -30 QRSD: 92 T: 62 QT: 400 QTc: 421 Interpretive Statements SINUS RHYTHM LAD NON-SPECIFIC ST/T CHANGES Electronically Signed On 11-19-2019 15:08:07 [employer] by Manpreet Villafana MD
[2019-11-14 12:14] LABS: CALCIUM 9.3 mg/dL (8.5-10.1); CREATININE 0.6 mg/dL (0.6-1.0); GFR 94.3; POTASSIUM 3.2 mmol/L (3.5-5.1)
[2019-11-14 12:27] LABS: ALBUMIN 3.4 g/dL (3.4-5.0); MAGNESIUM 1.6 mg/dL (1.8-2.4); TOTAL BILIRUBIN 1.9 mg/dL (0.2-1.0); TOTAL PROTEIN 6.9 g/dL (6.4-8.2)
[2019-11-14 12:47] LABS: % BANDS 1 % (0-9); % LYMPHS 6 % (24-48); % MONOS 9 % (0-10); % SEGS 84 % (35-66); PLT ESTIMATE ADEQUATE (ADEQUATE)
[2019-11-14] MEDS ORDERED: POTASSIUM CHLORIDE 20 MEQ TABLET.ER. PO ONE (13:00)
[2019-11-14] MEDS ORDERED: MAGNESIUM OXIDE 400 MG TABLET PO ONE (13:00)
[2019-11-14 14:31] LABS: BACTERIA,URINE 0 /HPF (0-FEW); BILIRUBIN,URINE NEG (NEG); CLARITY,URINE CLEAR; COLOR,URINE AMBER; GLUCOSE,URINE NEG (NEG); NITRITE,URINE NEG (NEG); SQUAMOUS EPITHELIAL CELL,UR FEW /LPF; UROBILINOGEN,URINE 0.2 mg/dL (0.2 mg/dL)
[2019-11-14] MEDS ORDERED: TRAM50TA PO (14:40)
[2019-11-14] MEDS ORDERED: CYCL5TAB PO (14:40)
== END 2019-11-14 14:49 | disposition home or self-care (01) ==
LOC: ER 11:11
DX: M54.2 Cervicalgia (principal); E86.0 Dehydration; M19.90 Unspecified osteoarthritis, unspecified site; K21.9 Gastro-esophageal reflux disease without esophagitis; E78.00 Pure hypercholesterolemia, unspecified; I10 Essential (primary) hypertension; E03.9 Hypothyroidism, unspecified; Z86.73 Personal history of transient ischemic attack (TIA), and cerebral infarction without residual deficits; Z88.5 Allergy status to narcotic agent; Z88.8 Allergy status to other drugs, medicaments and biological substances
CPT/HCPCS: 36415; 80053; 81001; 83735; 83880; 84484; 85007; 85025; 93005; 96361; 96374; 96375; 99285; J2405; J3010; J7030

== ENCOUNTER 2019-11-19 09:02 | Inpatient (IN) | payer MEDICARE ==
[2019-11-19] VITALS (7 sets, daily range): BP systolic 115–141; BP diastolic 64–76
[~2019-11-19] VITALS: Ht 157.5 cm; Wt 64.3 kg
[~2019-11-19 09:02] MED LIST changes: +CYCL5TAB PO; +MECL-75 PO; -MECL25TA3 PO; +TRAM50TA PO
[2019-11-19 09:45] LABS: BASO # 0.1 x10^3/uL (0.0-0.2); BASO % 0 % (0-3); EOS % 0 % (0-3); HEMOGLOBIN 13.2 g/dL (12.0-15.5); LYMPH # 0.6 x10^3/uL (1.0-4.8); LYMPH % 4 % (24-48); MEAN CORPUSCULAR HEMOGLOBIN 30 pg (25-35); MEAN CORPUSCULAR HGB CONC 34 g/dL (31-37); MEAN CORPUSCULAR VOLUME 90 fL (79-100); MONO # 1.5 x10^3/uL (0.0-1.1); MONO % 9 % (0-9); NEUT # 14.2 x10^3uL (1.8-7.7); NEUT % 87 % (31-73); PLATELET COUNT 360 x10^3/uL (140-400); RED BLOOD COUNT 4.33 x10^6/uL (3.50-5.40); RED CELL DISTRIBUTION WIDTH 13.6 % (11.5-14.5); WHITE BLOOD COUNT 16.4 x10^3/uL (4.0-11.0)
--- NOTE | 2019-11-19 09:59 | RAD ---
EXAM: CHEST 1 VIEW History: Chest pain COMPARISON: 04/11/2017 TECHNIQUE: Single portable radiograph of the chest FINDINGS: The cardiac silhouette is unremarkable. Minimal bibasilar lung airspace opacities. The costophrenic sulci are clear and well demarcated. IMPRESSION: Minimal bibasilar lung airspace opacities likely atelectasis or infiltrates. Electronically signed by: Blake Lemus MD (11/19/2019 9:56 AM) [facility]
[2019-11-19 10:26] LABS: CREATININE 0.6 mg/dL (0.6-1.0); GFR 94.3; POTASSIUM 3.1 mmol/L (3.5-5.1)
[2019-11-19 10:38] LABS: ALBUMIN 2.7 g/dL (3.4-5.0); ALBUMIN/GLOBULIN RATIO 0.8 (1.0-1.7); MAGNESIUM 1.5 mg/dL (1.8-2.4); TOTAL BILIRUBIN 1.4 mg/dL (0.2-1.0); TOTAL PROTEIN 6.2 g/dL (6.4-8.2)
[2019-11-19 10:46] LABS: % BANDS 2 % (0-9); % LYMPHS 3 % (24-48); % MONOS 8 % (0-10); % SEGS 87 % (35-66)
[2019-11-19 10:47] LABS: PLT ESTIMATE INCREASED (ADEQUATE)
[2019-11-19 10:48] LABS: OVALOCYTES OCC; TOXIC GRANULATION SLIGHT
[2019-11-19] MEDS ORDERED: IV NORMAL SALINE 50ML 50 ML ONE (11:15)
[2019-11-19] MEDS ORDERED: cefTRIAXone SODIUM 1 GM VIAL ONE (11:15)
[2019-11-19] MEDS ORDERED: POTASSIUM CHLORIDE 20 MEQ TABLET.ER. PO ONE ×2 (11:30→16:45)
--- NOTE | 2019-11-19 11:35 | PHYS DOC ---
Past History Past Medical History: High Cholesterol, Hypertension, Hypothyroid, Other Additional Past Medical Histor: Lorna's Past Surgical History: Other Additional Past Surgical Histo: hip and knee replacements Smoking: Non-smoker Alcohol Use: None Drug Use: None Adult General Chief Complaint Chief Complaint: CHEST PAIN HPI HPI Patient is a 89-year-old female who was brought here by EMS for evaluation of weakness, bilateral upper chest pain. Patient was admitted here on October 22, 2019 due to blood clot disorder. Patient was put on Eliquis. She had been taking the medication, his family stated that ever since she continued to have chest pain off and on, associated with weakness. Vision condition deteriorated, not able to walk around the house. Patient was seen here last Saturday for the same symptomS, she was given IV fluid for suspect dehydration. Patient was discharged home. Her family stated that she cannot get out of bed because of weakness. Patient IS interesting rehabilitation PLACEMENT. She denies any cough or fever. She denies any nausea vomiting. aLL OTHER ros IS NEGATIVE UNLESS OTHERWISE NOTED IN hpi Review of Systems Review of Systems See above Current Medications Current Medications Current Medications Medications (Trade) Dose Ordered Sig/[facility] Start Time Stop Time Status Last Admin Dose Admin Ceftriaxone Sodium 1 gm/ Sodium Chloride 50 ml @ 100 mls/hr 1X ONCE 11/19/19 10:30 11/19/19 10:59 DC 11/19/19 11:32 100 MLS/HR Ceftriaxone Sodium (Rocephin) 1 gm STK-MED ONCE 11/19/19 11:15 11/19/19 11:15 DC Potassium Chloride (Klor-Con) 40 meq 1X ONCE 11/19/19 11:30 11/19/19 11:31 DC Sodium Chloride 50 ml @ As Directed STK-MED ONCE 11/19/19 11:15 11/19/19 11:15 DC Allergies Allergies Allergies Coded Allergies Type Severity Reaction Last Updated Verified pregabalin Allergy Intermediate 10/22/19 Yes doxazosin Allergy Unknown 10/22/19 Yes hydrocodone Allergy Unknown 10/22/19 Yes Physical Exam Physical Exam See above Constitutional: Well developed, well nourished, no acute distress, non-toxic appearance. [] HENT: Normocephalic, atraumatic, bilateral external ears normal, oropharynx moist, no oral exudates, nose normal. [] Eyes: PERRLA, EOMI, conjunctiva normal, no discharge. [] Neck: Normal range of motion, no tenderness, supple, no stridor. [] Cardiovascular:Heart rate regular rhythm, no murmur [] Lungs & Thorax: Bilateral breath sounds clear to auscultation [] Abdomen: Bowel sounds normal, soft, no tenderness, no masses, no pulsatile masses. [] Skin: Warm, dry, no erythema, no rash. [] Back: No tenderness, no CVA tenderness. [] Extremities: No tenderness, no cyanosis, no clubbing, ROM intact, no edema. [] Neurologic: Alert and oriented X 3, normal motor function, normal sensory fun ction, no focal deficits noted. [] Psychologic: Affect normal, judgement normal, mood normal. [] Current Patient Data Vital Signs Vital Signs Date Time Temp Pulse Resp B/P (MAP) Pulse Ox O2 Delivery O2 Flow Rate FiO2 11/19/19 11:31 100 21 128/77 (94) 92 Room Air 11/19/19 09:02 98.5 Lab Results Laboratory Tests Test 11/19/19 09:30 11/19/19 09:58 11/19/19 10:22 White Blood Count 16.4 x10^3/uL (4.0-11.0) H Red Blood Count 4.33 x10^6/uL (3.50-5.40) Hemoglobin 13.2 g/dL (12.0-15.5) Hematocrit 39.0 % (36.0-47.0) Mean Corpuscular Volume 90 fL (79-100) Mean Corpuscular Hemoglobin 30 pg (25-35) Mean Corpuscular Hemoglobin Concent 34 g/dL (31-37) Red Cell Distribution Width 13.6 % (11.5-14.5) Platelet Count 360 x10^3/uL (140-400) Neutrophils (%) (Auto) 87 % (31-73) H Lymphocytes (%) (Auto) 4 % (24-48) L Monocytes (%) (Auto) 9 % (0-9) Eosinophils (%) (Auto) 0 % (0-3) Basophils (%) (Auto) 0 % (0-3) Neutrophils # (Auto) 14.2 x10^3uL (1.8-7.7) H Lymphocytes # (Auto) 0.6 x10^3/uL (1.0-4.8) L Monocytes # (Auto) 1.5 x10^3/uL (0.0-1.1) H Eosinophils # (Auto) 0.0 x10^3/uL (0.0-0.7) Basophils # (Auto) 0.1 x10^3/uL (0.0-0.2) Segmented Neutrophils % 87 % (35-66) H Band Neutrophils % 2 % (0-9) Lymphocytes % 3 % (24-48) L Monocytes % 8 % (0-10) Toxic Granulation Slight Platelet Estimate Increased (ADEQUATE) Large Platelets Occ Ovalocytes Occ Crenated Cell Present Prothrombin Time 12.2 SEC (9.4-11.4) H Prothrombin Time INR 1.2 (0.9-1.1) H Activated Partial Thromboplast Time 37 SEC (23-33) H Sodium Level 130 mmol/L (136-145) L Potassium Level 3.1 mmol/L (3.5-5.1) L Chloride Level 92 mmol/L (98-107) L Carbon Dioxide Level 28 mmol/L (21-32) Anion Gap 10 (6-14) Blood Urea Nitrogen 14 mg/dL (7-20) Creatinine 0.6 mg/dL (0.6-1.0) Estimated GFR (Cockcroft-Gault) 94.3 BUN/Creatinine Ratio 23 (6-20) H Glucose Level 110 mg/dL (70-99) H Calcium Level 9.0 mg/dL (8.5-10.1) Magnesium Level 1.5 mg/dL (1.8-2.4) L Total Bilirubin 1.4 mg/dL (0.2-1.0) H Aspartate Amino Transferase (AST) 21 U/L (15-37) Alanine Aminotransferase (ALT) 18 U/L (14-59) Alkaline Phosphatase 101 U/L (46-116) Troponin I Quantitative < 0.017 ng/mL (0-0.055) SE-Ese-M-Type Natriuretic Peptide 397 pg/mL (0-449) Total Protein 6.2 g/dL (6.4-8.2) L Albumin 2.7 g/dL (3.4-5.0) L Albumin/Globulin Ratio 0.8 (1.0-1.7) L Lipase 94 U/L (73-393) Lactic Acid Level 0.9 mmol/L (0.4-2.0) EKG EKG EKG WAS READ BY THIS PHYSICIAN AT 916, RATE OF 88 BPM, NO STEMI Radiology/Procedures Radiology/Procedures [][address] [address] IMAGING REPORT Signed PATIENT: SAMANTHA GOTTI ACCOUNT: [id number] : 1930 LOCATION: ER AGE: 89 SEX: F EXAM STATUS: REG ER ORD. PHYSICIAN: KARSON SIMMONS DO REASON: chest pain PROCEDURE: PORTABLE CHEST 1V EXAM: CHEST 1 VIEW History: Chest pain COMPARISON: 04/11/2017 TECHNIQUE: Single portable radiograph of the chest FINDINGS: The cardiac silhouette is unremarkable. Minimal bibasilar lung airspace opacities. The costophrenic sulci are clear and well demarcated. IMPRESSION: Minimal bibasilar lung airspace opacities likely atelectasis or infiltrates. Electronically signed by: Blake Lemus MD (11/19/2019 9:56 AM) [facility] DICTATED AND SIGNED BY: BLAKE LEMUS MD DATE: 11/19/19 0956 CC: ALINE MONTANEZ MD; KARSON SIMMONS DO ~ Course & Med Decision Making Course & Med Decision Making Pertinent Labs and Imaging studies reviewed. (See chart for details) [] Dragon Disclaimer Dragon Disclaimer This electronic medical record was generated, in whole or in part, using a voice recognition dictation system. Departure Departure: Impression: Primary Impression: Chest pain Additional Impression: Weakness Disposition: ADMITTED INPATIENT Admitting Physician: Sushila Watkins Condition: STABLE Referrals: ALINE MONTANEZ MD (PCP) HEART Score for Chest Pain PTs The HEART Score for CP Pts HEART Score for Chest Pain: HEART Score for Chest Pain Response (Comments) Value History Moderately Suspicious 1 ECG Nonspecific Repolarizatio 1 Age > 65 2 Risk Factors 1 or 2 Risk Factors 1 Troponin < Normal Limit 0 Total 5 Risk Factors: Risk Factors: DM, Current or recent (<one month) smoker, HTN, HLP, family history of CAD, obesity. Risk Scores: Score 0 - 3: 2.5% MACE over next 6 weeks - Discharge Home Score 4 - 6: 20.3% MACE over next 6 weeks - Admit for Clinical Observation Score 7 - 10: 72.7% MACE over next 6 weeks - Early Invasive Strategies Problem Qualifiers KARSON SIMMONS DO Nov 19, 2019 11:35
[2019-11-19] MEDS ORDERED: ONDANSETRON PF 4 MG/2 ML VIAL. IV PRN (12:00)
[2019-11-19 12:14] LABS: BILIRUBIN,URINE NEG (NEG); CLARITY,URINE HAZY; COLOR,URINE AMBER; GLUCOSE,URINE NEG (NEG)
[2019-11-19 12:15] LABS: BACTERIA,URINE 0 /HPF (0-FEW); NITRITE,URINE NEG (NEG); SQUAMOUS EPITHELIAL CELL,UR OCC /LPF
[2019-11-19] MEDS: POTASSIUM CL 40MEQ IN 0.9%NACL 1,000 ML IV SCH ×2 (14:41→20:10)
--- NOTE | 2019-11-19 15:42 | CONS ---
DATE OF CONSULTATION: 11/19/2019 REASON FOR CONSULTATION: Chest pain. HISTORY OF PRESENT ILLNESS: The patient is a pleasant 89-year-old woman who presents to the hospital in the setting of diffuse aches and pains. She was seen in the hospital ER approximately 3 days ago where she was diagnosed with dehydration, given Flexeril and discharged home for back spasms. She continued to have difficulty with pain mostly localized to her right lower abdominal quadrant and back, but she also complains of pain mostly in the neck and spinal area. She does not have any chest pain nor does she have any dyspnea. The patient at baseline states that she is able to ambulate without significant difficulties. She has not had any falls or significant changes to her medications. PAST MEDICAL HISTORY: 1. Hypertension. 2. Dyslipidemia. 3. Diagnosis of pulmonary embolus in 10/2019, currently on Eliquis therapy. 4. Arthritis. SOCIAL HISTORY: No alcohol, tobacco or illicit drug use. ALLERGIES: DOXAZOSIN, HYDROCODONE, AND PREGABALIN. REVIEW OF SYSTEMS: Negative unless otherwise mentioned above in HPI. FAMILY HISTORY: Noncontributory. PHYSICAL EXAMINATION: VITAL SIGNS: Afebrile, 100, 21, 128/77, 92% on room air. GENERAL: She was alert and oriented, in moderate distress from significant back spasms and pain. HEAD AND NECK: Otherwise unremarkable. CARDIAC: Regular rate and rhythm without any murmurs, rubs or gallops. LUNGS: Clear to auscultation anteriorly. ABDOMEN: Soft, nontender, nondistended. MUSCULOSKELETAL: She has pain upon palpation of the trapezius and also the paraspinal musculature and the right hip. NEUROLOGIC: No obvious focal deficits. EXTREMITIES: 1+ radial and diminished pedal pulses. DIAGNOSTIC STUDIES: EKG is unremarkable. Troponin is negative. CT scan from October. Chest x-ray demonstrates minimal infiltrates without any obvious mass or effusion or consolidation. IMPRESSION: Noncardiac chest pain: Differential diagnosis includes colic versus gallbladder pain versus musculoskeletal pain. RECOMMENDATIONS: At this present time, continue treatment for dehydration and pain. No further cardiovascular testing necessary at this time. Please call with any further questions. Thank you for this consultation. DAVIN SUE MD DR: JONNY/yvonne JOB#: [id number] / [id number]
[2019-11-19] MEDS ORDERED: LEVO25TA4 PO (16:10)
--- NOTE | 2019-11-19 16:16 | NUR ---
Pt admitted to ICU bed 1 from ED. PT is able to verbalized understanding of admission to hospital. Daughter and granddaughter at bed side. Pt daughter reports pt has declined since admission in October for PE's. Pt was started on eliquis and stopped her celebrex. PT reports having pain in back and neck and sharp stabbing pain at times R flank. PTs daughter reports pt is not eating and drinking and is having pain all over. Unsure if patient has fallen or had an injury. Pt denies. Granddaughter reports being with her all day and pt won't even get out of bed and this is not like her. When pt was discharged in dec she was pain free and walking all over the unit prior to dc. Pt has made a steady decline since. Skylar GANT
[2019-11-19] MEDS ORDERED: ACETAMINOPHEN 325 MG TABLET PO PRN (16:30)
[2019-11-19] MEDS ORDERED: ONDANSETRON PF 4 MG/2 ML VIAL. IVP PRN (16:30)
[2019-11-19] MEDS ORDERED: MAGNESIUM SULFATE 2GM 50 ML IV ONE (16:45)
[2019-11-19] MEDS: AZITHROMYCIN 500 MG in IV NORMAL SALINE 250ML 250 ML IV SCH (17:10)
--- NOTE | 2019-11-19 17:40 | EKG ---
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
--- NOTE | 2019-11-19 18:41 | RAD ---
CT C-Spine without contrast: Clinical History: Neck pain Technique: Axial helical images of the cervical spine were obtained without contrast, axial coronal and sagittal reconstruction was performed. Findings: There is no loss of vertebral body stature. There is no prevertebral soft tissue swelling. There is mild degenerative anterolisthesis of C4 on C5. The C1-C2 relationship is normal. The visualized osseous structures appear normal. Evaluation of the central canal is limited without contrast. There is multiple posterior disc bulges resulting in flattening of the thecal sac. There does not appear to be gross flattening of the cervical cord. There is moderate narrowing of multiple neuroforamen. Impression: No acute findings. Clinical correlation suggested. PQRS Compliance Statement: One or more of the following individualized dose reduction techniques were utilized for this examination: 1. Automated exposure control 2. Adjustment of the mA and/or kV according to patient size 3. Use of iterative reconstruction technique Electronically signed by: Lucien Santos III, MD (11/19/2019 6:38 PM) [facility]
--- NOTE | 2019-11-19 19:04 | RAD ---
CT thoracic spine without contrast History: Axial helical images of the thoracic spine were obtained without contrast. Axial, coronal and sagittal reconstruction was performed. Findings: The vertebral bodies are aligned. There is no loss of vertebral body stature. Evaluation of the central canal is limited without contrast. There is no evidence of significant central or neuroforaminal stenosis. There is patchy opacities in the lungs posteriorly. Impression: 1. Bilateral pulmonary infiltrates likely discoid atelectasis. 2. No evidence of acute fracture or malalignment. End impression CT lumbar spine without contrast History: Back pain Axial helical images of the lumbar spine were obtained without contrast. Axial, coronal and sagittal reconstruction was performed. Findings: There is grade 2 anterior thesis of L4 on L5. The remaining vertebral bodies aligned. There is no loss of vertebral body stature. Evaluation of the central canal is limited without contrast. There is diffuse circumferential disc bulge and hypertrophy assessment flavum resulting in mild central stenosis at L2-L3 and moderate central stenosis at L3-L4 and marked central stenosis at L4-L5. There is marked narrowing of the neuroforamen bilaterally at L4-L5 with loss of fat around the exiting nerve roots. There is moderate narrowing of the neuroforamen bilaterally at L3-L4. 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 There is compression of the internal course the exiting nerve roots bilaterally at L4-L5. No acute findings. End impression CT pelvis without contrast: Axial helical images the pelvis obtained without contrast and axial coronal and sagittal reconstruction was performed. FINDINGS: There is beam Chandler artifact due to prior left hip total arthroplasty. The visualized osseous structures appear grossly intact. There is no free fluid. IMPRESSION: No acute findings. PQRS Compliance Statement: One or more of the following individualized dose reduction techniques were utilized for this examination: 1. Automated exposure control 2. Adjustment of the mA and/or kV according to patient size 3. Use of iterative reconstruction technique Electronically signed by: Lucien Santos III, MD (11/19/2019 7:01 PM) [facility]
[2019-11-19] MEDS: APIXABAN 5 MG TABLET. PO SCH (20:46)
[2019-11-20] MEDS: POTASSIUM CL 40MEQ IN 0.9%NACL 1,000 ML IV SCH ×2 (02:43→12:26)
[2019-11-20 03:00] VITALS: BP 125/66
[2019-11-20] MEDS: LEVOTHYROXINE 25 MCG TABLET. PO SCH (05:26)
[2019-11-20 05:37] VITALS: BP 129/68
[2019-11-20 06:33] LABS: BASO # 0.1 x10^3/uL (0.0-0.2); BASO % 1 % (0-3); EOS % 0 % (0-3); HEMATOCRIT 33.8 % (36.0-47.0); HEMOGLOBIN 11.5 g/dL (12.0-15.5); LYMPH # 1.3 x10^3/uL (1.0-4.8); LYMPH % 10 % (24-48); MEAN CORPUSCULAR HEMOGLOBIN 31 pg (25-35); MEAN CORPUSCULAR HGB CONC 34 g/dL (31-37); MEAN CORPUSCULAR VOLUME 90 fL (79-100); MONO # 1.3 x10^3/uL (0.0-1.1); MONO % 10 % (0-9); NEUT # 10.8 x10^3uL (1.8-7.7); NEUT % 79 % (31-73); PLATELET COUNT 366 x10^3/uL (140-400); RED BLOOD COUNT 3.75 x10^6/uL (3.50-5.40); RED CELL DISTRIBUTION WIDTH 13.6 % (11.5-14.5); WHITE BLOOD COUNT 13.6 x10^3/uL (4.0-11.0)
[2019-11-20 06:48] LABS: ALBUMIN 2.3 g/dL (3.4-5.0); ALBUMIN/GLOBULIN RATIO 0.6 (1.0-1.7); CALCIUM 8.6 mg/dL (8.5-10.1); CREATININE 0.6 mg/dL (0.6-1.0); GFR 94.3; POTASSIUM 4.5 mmol/L (3.5-5.1); TOTAL BILIRUBIN 0.9 mg/dL (0.2-1.0); TOTAL PROTEIN 6.4 g/dL (6.4-8.2)
[2019-11-20] MEDS: amLODIPine BESYLATE 10 MG TABLET PO SCH (09:36)
[2019-11-20] MEDS: tiZANidine 4 MG TABLET. PO PRN ×2 (09:36→23:05)
[2019-11-20] MEDS: ATORVASTATIN CALCIUM 20 MG TABLET PO SCH (09:37)
[2019-11-20] MEDS: APIXABAN 5 MG TABLET. PO SCH ×2 (09:37→20:45)
[2019-11-20 11:00] VITALS: BP 117/75
[2019-11-20 12:09] VITALS: BP 126/66
--- NOTE | 2019-11-20 14:12 | RAD ---
CT scan of the head without contrast 11/20/2019 Clinical History: Right-sided weakness. Technique: Unenhanced, contiguous, 5 mm axial sections were obtained through the head. One or more of the following individualized dose reduction techniques were utilized for this study: 1. Automated exposure control. 2. Adjustment of the mA and/or kV according to patient size. 3. Use of iterative reconstruction technique. Findings: Comparison study is dated 04/11/2017. There is generalized parenchymal atrophy. Areas of decreased attenuation are seen within the periventricular and subcortical white matter of both cerebral hemispheres consistent with areas of small vessel ischemic disease. No acute parenchymal abnormality is seen. No extra-axial fluid collection is noted. No skull fracture is seen. Impression: No acute intracranial abnormality is seen. Electronically signed by: Calderon Schmitz MD (11/20/2019 2:09 PM) [facility]
--- NOTE | 2019-11-20 14:47 | HP ---
ADMIT DATE: 11/19/2019 HISTORY OF PRESENT ILLNESS: The patient is an 89-year-old female patient who presented to the hospital stating diffuse aches and pains. She was seen in the hospital emergency room approximately 3 days ago when she was diagnosed with dehydration, given Flexeril and discharged home for back spasm. She continued to have difficulty with pain, mostly localized in her right lower abdominal quadrant and back. She also complained of pain mostly in her neck and spinal area. She does not have any chest pain nor does she have any dyspnea. At the baseline, she is able to ambulate without any significant difficulty. She has not had any falls or significant change in her medication. She was evaluated initially in the emergency room, was found to have marked leukocytosis with a white cell count of 16,000. She has hyponatremia and hypokalemia and was basically admitted for treatment of community-acquired pneumonia and to investigate her complaint of abdominal pain, right lower back pain and pain radiating to her right gluteal area. She was in severe pain that she cannot even sit up from lying position. She has episodes of severe spasm during which she cries with pain. She initially had a chest x-ray, which basically showed the cardiac silhouette is unremarkable, minimal bibasilar lung airspace opacities. The costophrenic sulci are clear and well demarcated and she has had also extensive imaging including thoracic, lumbar and cervical spine as well as pelvic CT scan. The CT scan of the thoracic spine showed she has bilateral pulmonary infiltrate, likely discoid atelectasis, no acute fracture or malalignment. CT scan of the lumbar spine without contrast showed that there is grade 2 anterolisthesis of L4 on L5. The remaining vertebral bodies aligned. There is no loss of vertebral body stature. CT scan of the pelvis without contrast showed that there is a beam hardening artifact due to prior left hip arthroplasty. The visualized osseous structures appear grossly intact. There is no free fluid. The CT scan of the cervical spine showed that there is no acute finding with no loss of vertebral body stature. There is no prevertebral soft tissue swelling. There is mild degenerative anterolisthesis of C4 and C5. C1-C2 relationship is normal. The visualized osseous structures appear normal. Evaluation of central canal is limited without contrast. There are multiple posterior disk bulges resulting in flattening of the thecal sac. There does not appear to be gross flattening of the cervical cord. There is moderate narrowing of multilevel neural foramina. The patient was basically admitted with community-acquired pneumonia and severe back pain, mostly on the right side. She was admitted recently here, treated for pulmonary emboli, and we basically continued her Eliquis and all other medications and was started her on fentanyl. She was also found to have hypokalemia and hyponatremia for which she was started on normal saline with 40 mEq of potassium chloride to replenish both potassium and sodium. ELENA DOCKERY MD DR: MALIA/yvonne JOB#: [id number] / [id number]
[2019-11-20 15:00] VITALS: BP 126/66
[2019-11-20] MEDS: IV NORMAL SALINE 1,000ML 1,000 ML IV SCH (16:28)
[2019-11-20] MEDS: AZITHROMYCIN 500 MG in IV NORMAL SALINE 250ML 250 ML IV SCH (18:08)
--- NOTE | 2019-11-20 18:19 | NUR ---
Patient is having difficulty with the range of motion in the URE. Patient has had previous issues with this should but it is worse than normal. PT and OT were consulted as well as Dr Freeman to rule out a CVA incident. Pt has a recent history of PE's so some concern for a CVA event. CT of the head was ordered and results were not indicative of a CVA event. Patient has complained of lower back pain and spasms therefore a muscle relaxant was given which patient responded well to. Patient has been pleasant and cooperative with slight confusion at times.
[2019-11-20 20:30] VITALS: BP 111/52
--- NOTE | 2019-11-20 22:08 | PN ---
DATE: 11/20/2019 SUBJECTIVE: The patient is resting, slightly propped up in bed today and in no apparent distress. She seemed to be getting more confused according to her daughter and the nursing staff. The pain seems to be much better controlled; however, she has now weakness of her right upper extremity, although the weakness is disproportionately worse in her right upper extremity than her left lower extremity. PHYSICAL EXAMINATION: GENERAL: When I examined her this afternoon, she looked well and was clearly in no apparent respiratory distress. No pallor, jaundice, cyanosis or thyromegaly. No jugular venous distention. VITAL SIGNS: Her heart rate was 78, blood pressure was 117/75, temperature 98.1, respiratory rate was 12 and oxygen saturation was 97% on 1 liter of oxygen. HEAD, EYES, EARS, NOSE AND THROAT: Showed normocephalic, atraumatic. NECK: Supple. HEART: Showed normal first and second heart sounds. No gallop or murmur. CHEST: Clear to auscultation. No crepitation or rhonchi. ABDOMEN: Distended, soft, nontender. NEUROLOGIC: She is awake, alert, but somewhat confused. All her cranial nerves are intact. She definitely has marked weakness of her right upper extremity compared to the left; however, she is able to move both lower extremities without difficulty. She in fact has no pain today. LABORATORY DATA: Showed that her sodium is still low at 132, potassium has improved to 4.5, chloride 98, bicarbonate 24, anion gap of 10, BUN 14, creatinine 0.6, estimated GFR was 94 mL per minute. Her glucose was 97, calcium was 8.9, magnesium was 2. Total bilirubin, AST, ALT, alkaline phosphatase were normal. Total protein 6.4, albumin 2.3. White cell count is down to 13,600, hemoglobin 11, hematocrit 33, MCV 90, and platelet count of 366,000. ASSESSMENT: 1. Community-acquired pneumonia, responding. Her white cell count is down. She is afebrile. 2. Bilateral pulmonary emboli for which she is to continue on apixaban. 3. Severe degenerative disk disease, particularly the lumbar spine CT scan showed that the patient has grade 2 spondylolisthesis of L4 on L5 and the remaining vertebral body aligned and there is no loss of vertebral body stature. PLAN: My plan is to arrange for a CT scan of the head and total body bone scan. Meanwhile, continue with all her medication, change IV fluid to normal saline at 75 mL per hour. Continue with physical and occupational therapy. ELENA DOCKERY MD DR: MALIA/yvonne JOB#: [id number] / [id number]
[2019-11-21 06:00] VITALS: BP 116/60
[2019-11-21] MEDS: LEVOTHYROXINE 25 MCG TABLET. PO SCH (06:06)
[2019-11-21] MEDS: IV NORMAL SALINE 1,000ML 1,000 ML IV SCH (06:07)
[2019-11-21 06:59] LABS: HEMATOCRIT 32.1 % (36.0-47.0); HEMOGLOBIN 10.8 g/dL (12.0-15.5); RED BLOOD COUNT 3.54 x10^6/uL (3.50-5.40); RED CELL DISTRIBUTION WIDTH 13.8 % (11.5-14.5); WHITE BLOOD COUNT 13.9 x10^3/uL (4.0-11.0)
[2019-11-21 07:15] LABS: ALBUMIN 2.1 g/dL (3.4-5.0); ALBUMIN/GLOBULIN RATIO 0.6 (1.0-1.7); CALCIUM 8.1 mg/dL (8.5-10.1); CREATININE 0.6 mg/dL (0.6-1.0); GFR 94.3; POTASSIUM 3.9 mmol/L (3.5-5.1); TOTAL BILIRUBIN 0.7 mg/dL (0.2-1.0); TOTAL PROTEIN 5.9 g/dL (6.4-8.2)
[2019-11-21] MEDS: APIXABAN 5 MG TABLET. PO SCH ×2 (09:13→21:48)
[2019-11-21] MEDS: amLODIPine BESYLATE 10 MG TABLET PO SCH (09:14)
[2019-11-21] MEDS: LACTOBACILLUS RHAMNOSUS GG 1 CAPSULE. PO SCH ×2 (09:14→21:48)
[2019-11-21] MEDS: ATORVASTATIN CALCIUM 20 MG TABLET PO SCH (09:14)
[2019-11-21] MEDS: tiZANidine 4 MG TABLET. PO PRN (09:15)
[2019-11-21 11:26] VITALS: BP 120/61
--- NOTE | 2019-11-21 11:43 | RAD ---
EXAM: 1. Right shoulder 3 views. 2. Right elbow 3 views. 3. Right wrist 3 views. HISTORY: Right shoulder, elbow and wrist pain. COMPARISON: None. FINDINGS: No fractures are appreciated at the right shoulder. The subacromial space is effaced consistent with advanced rotator cuff arthropathy. Glenohumeral osteoarthritis is moderate to severe. Acromioclavicular osteoarthritis is moderate. Fairly directed clavicular spurs measure up to 6 mm. There is atelectasis in the right base. There are atherosclerotic calcifications of the aorta. There are projectional limitations at the elbow. No fractures are identified. Joint spaces and alignment appear maintained. Tiny osteophytes indicate mild osteoarthritis. There is a large elbow effusion. Soft tissue swelling is noted over the olecranon and along the proximal forearm. No fractures are appreciated at the right wrist. First carpometacarpal and triscaphe osteoarthritis are moderate to severe. There is chondrocalcinosis of the triangular fibrocartilage complex. Osteopenia is at least moderate. Additional soft tissue calcifications are noted along the second, fourth and fifth metacarpophalangeal joints. First through third metacarpophalangeal osteoarthritis is mild to moderate. First interphalangeal osteoarthritis is mild to moderate. Soft tissue swelling is noted dorsally at the wrist. A ring is partially visualized. IMPRESSION: 1. Advanced right rotator cuff arthropathy with moderate to severe glenohumeral and acromioclavicular osteoarthritis. 2. Large elbow effusion. Surrounding soft tissue swelling. There are projectional limitations, but no fracture is appreciated. 3. 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 Correlate to exclude deposition diseases such as CPPD. There is soft tissue swelling. 4. Moderate to severe osteoarthritis within the hand/wrist as above. Electronically signed by: Tatiana Kirkland MD (11/21/2019 11:41 AM) [facility]
[2019-11-21] MEDS ORDERED: predniSONE 20 MG TABLET PO ONE (14:30)
[2019-11-21 15:17] VITALS: BP 120/61
--- NOTE | 2019-11-21 16:13 | NUR ---
Pt had xray of right arm and bone scan done. Dr. Freeman in to see pt. Prednisone order added. Zithromax changed to oral tabs. IV fluids discontinued. Family in to visit pt today. Will continue to monitor.
--- NOTE | 2019-11-21 16:41 | RAD ---
Whole-body bone scan. HISTORY: Falls with pain in multiple areas. Whole-body bone scan was done using 21 mCi technetium 99 MDP. There are recent CT images of the spine for comparison. There are x-rays for comparison. There is normal bladder activity. There is a total joint prosthesis at each knee without abnormal activity. There is no abnormal activity at the left hip prosthesis. There is moderate activity at L5 probably degenerative from degenerative disc disease at L4-5 and facet arthritis. There is no acute lumbar fracture on the CT images. There is mild activity on the left side at approximately T9. There is degenerative disc disease at that level especially on the left which could account for that activity. There is no acute fracture at that level in the thoracic spine. There is no abnormal activity in the ribs. There is activity at the lateral aspect of the wrist on both sides which could be arthritis. There is activity at the glenoid and acromium of the right shoulder, shoulder x-ray show marked arthritis at those locations. There is no abnormal pelvic activity. IMPRESSION: 1. Activity at the wrists, right shoulder, T-spine and L-spine all probably degenerative but if there is persistent concern follow-up x-rays could be of benefit. Electronically signed by: Hernando Rothman MD (11/21/2019 4:39 PM) [id number]
[2019-11-21] MEDS: AZITHROMYCIN 250 MG TABLET. PO SCH (17:00)
[2019-11-21 19:00] VITALS: BP 169/61
[2019-11-21 23:59] VITALS: BP 125/66
--- NOTE | 2019-11-22 01:47 | PN ---
DATE: SUBJECTIVE: The patient is doing actually much better. She is now walking with a walker with assistance. X-ray of her right wrist showed that she has chondrocalcinosis of the right wrist may be senescent finding. She has also advanced right rotator cuff arthropathy with moderate to severe glenohumeral and acromioclavicular osteoarthritis. She has large elbow effusion surrounding soft tissue swelling. There are projectional limitation, but no fracture is appreciated and moderate to severe osteoarthritis within the hand and wrist as above, but overall the patient seems to be doing much better. We have the bone scan scheduled this afternoon. OBJECTIVE: GENERAL: On examining her, she looked pale, but no jaundice, cyanosis or thyromegaly. No jugular venous distension. No limb edema. VITAL SIGNS: Her heart rate was 66, blood pressure was 120/61, temperature was 99, respiratory rate was 16 and oxygen saturation was 94% on room air. HEAD, EYES, EARS, NOSE AND THROAT: Showed normocephalic, atraumatic. NECK: Supple. HEART: Showed normal first and second heart sounds. No gallop or murmur. CHEST: Clear to auscultation. No crepitation or rhonchi. ABDOMEN: Distended, soft, nontender. NEUROLOGIC: She is awake, alert, responding appropriately, continued to have difficulty moving her right shoulder due to severe osteoarthritis and probably severe rotator cuff tear. Her right wrist is markedly swollen compared to the left. Her intake over the last 24 hours was 1620, output was 725. LABORATORY DATA: As of this morning, her serum sodium of 132, potassium 3.9, chloride 98, bicarbonate 24, anion gap of 10, BUN 14, creatinine 0.6, estimated GFR was 94 mL per minute. Her glucose was 92, calcium was 8.1. Total bilirubin, AST, ALT, alkaline phosphatase were normal. Total protein was 5.9, albumin 2.7. Her white cell count was 13,900, hemoglobin 11, hematocrit 32, MCV 91 and platelet count 350,000. ASSESSMENT: 1. Community-acquired pneumonia, responding. Her white cell count is slightly down. She is afebrile. 2. Bilateral pulmonary emboli for which she continues to be on apixaban. 3. Severe degenerative disk disease, particularly the lumbar spine. 4. Severe advanced osteoarthritis of the glenohumeral and acromioclavicular osteoarthritis. 5. She has large elbow effusion surrounding soft tissue, but no fracture is appreciated. She has chondrocalcinosis of the right wrist may be senescent finding. 6. Moderate to severe osteoarthritis of the hand. PLAN: My plan is to continue with antibiotic, stop the IV fluid and start her on steroids. Await the result of the bone scan and decide the further management accordingly. ELENA DOCKERY MD DR: MALIA/yvonne JOB#: [id number] / [id number]
[2019-11-22 03:03] VITALS: BP 130/65
[2019-11-22 06:10] VITALS: BP 130/65
[2019-11-22] MEDS: LEVOTHYROXINE 25 MCG TABLET. PO SCH (06:21)
[2019-11-22 07:54] LABS: HEMATOCRIT 32.6 % (36.0-47.0); HEMOGLOBIN 10.9 g/dL (12.0-15.5); RED BLOOD COUNT 3.61 x10^6/uL (3.50-5.40); RED CELL DISTRIBUTION WIDTH 13.9 % (11.5-14.5)
[2019-11-22 08:03] LABS: C REACTIVE PROTEIN 172.9 mg/L (0-3.3); CALCIUM 8.4 mg/dL (8.5-10.1); CREATININE 0.6 mg/dL (0.6-1.0); GFR 94.3; POTASSIUM 3.5 mmol/L (3.5-5.1)
[2019-11-22] MEDS: ATORVASTATIN CALCIUM 20 MG TABLET PO SCH (08:46)
[2019-11-22] MEDS: predniSONE 20 MG TABLET PO SCH (08:47)
[2019-11-22] MEDS: LACTOBACILLUS RHAMNOSUS GG 1 CAPSULE. PO SCH ×2 (08:47→20:24)
[2019-11-22] MEDS: APIXABAN 5 MG TABLET. PO SCH ×2 (08:47→20:24)
[2019-11-22] MEDS: amLODIPine BESYLATE 10 MG TABLET PO SCH (08:47)
[2019-11-22 11:00] VITALS: BP 122/66
--- NOTE | 2019-11-22 11:16 | CONS ---
DATE OF CONSULTATION: 11/21/2019 NEUROLOGY CONSULTATION REFERRING PHYSICIAN: Dr. Watkins. REASON FOR CONSULTATION: Severe back pain, neck pain. HISTORY OF PRESENT ILLNESS: This is an 89-year-old right-handed female who was admitted through Emergency Room after she presented with diffuse and severe aches and pain. The patient has recently noticed increased neck pain radiating into the right upper extremity and associated with swelling and weakness. The pain was severe to the point she cannot raise her right upper extremity or bend in her wrist. She also complains of diffuse pains and aches from neck down to the lumbar spine. She has had chronic lower back pain, which has been worse in the last few weeks and radiating into the lower extremities. The patient also complains of chest pain. She was seen in the Emergency Room 3 days ago and she was diagnosed with dehydration. She also complains of pain confined to the right lower quadrant. A chest x-ray revealed evidence of atelectasis, but CT of the chest revealed evidence of bilateral pulmonary embolism and infiltrates. Initial nonenhanced CT scan of the cervical spine, thoracic spine, lumbar spine and pelvic revealed evidence of diffuse and advanced degenerative changes. Currently, she denies headaches, visual disturbances, nausea, vomiting, dysarthria, dysphagia, weakness or paresthesia. She denies any recent injuries or falls. PAST MEDICAL HISTORY: Significant for cataract, dysphagia, TIA, coronary artery disease, pulmonary embolism diagnosed in October 2019, hyperlipidemia, diverticulosis, GERD, osteoarthritis, osteoporosis, hypothyroidism, and hypertension. 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 SOCIAL HISTORY: The patient lives at home. She denies smoking, alcohol drinking, or illicit drug use. CURRENT HOME MEDICATIONS: Include Tylenol, amlodipine, Eliquis, Lipitor, levothyroxine, and tizanidine. ALLERGIES: DOXAZOSIN and HYDROCODONE and PREGABALIN or LYRICA. REVIEW OF SYSTEMS: A 10-point review of system was performed as mentioned above in history of present illness. PHYSICAL EXAMINATION: GENERAL: Well-developed, well-nourished female, not in acute distress. She weighs 64 pounds. VITAL SIGNS: Blood pressure 120/61, respiratory rate 16, pulse is 66, and oxygen saturation 91% on room air. HEENT: Normocephalic, atraumatic, otherwise unremarkable. NECK: Supple. Negative for carotid bruit, lymphadenopathy or thyromegaly. LUNGS: Clear to A and P. CARDIOVASCULAR: Regular rate and rhythm, normal S1, S2. There is no S3, S4 or murmur. ABDOMEN: Soft. Bowel sounds positive. EXTREMITIES: Positive for marked arthritic changes and swelling of the right upper extremity. NEUROLOGICAL EXAMINATION: 1. MENTAL STATUS: The patient is alert and oriented x 3. The speech is fluent. There is no language dysfunction. Memory, judgment, and abstract thinking are normal. The patient denies hallucination or delusion. 2. CRANIAL NERVES: Visual farris are full. The pupils are reactive to light and accommodation. The extraocular movements are intact. There is no nystagmus. There is no facial motor or sensory deficit. Hearing is intact bilaterally. The palate is elevated symmetrically. Sternocleidomastoid muscles are powerful bilaterally. The patient shrugs her shoulders symmetrically and protrudes her tongue in the midline without fasciculation or atrophy. 3. MOTOR: No focal muscle bulk was seen. The tone is normal. The strength is 4/5 throughout. However, the strength in the right upper extremity is difficult to evaluate secondary to severe pain. 4. SENSORY: Examination revealed normal pinprick, light touch, vibratory and position senses. Deep tendon reflexes were symmetric and hypoactive with absent Achilles responses. Gait not tested. DIAGNOSTIC DATA: A noncontrast head CT scan revealed no evidence of acute intracranial process. CT of the cervical spine revealed no acute process, but some mild degenerative arthritis. CT of the thoracic spine revealed bilateral pulmonary infiltrates and no fracture or malalignment noted. CT of the lumbar spine revealed multilevel degenerative changes with central neural foraminal stenosis, more prominent at L4-L5, otherwise no acute changes. X-ray of the right shoulder revealed advanced right rotator cuff arthropathy with moderate to severe osteoarthritis, large right elbow effusion with soft tissue swelling. X-ray of the right wrist revealed chondrocalcinosis of the right wrist and soft tissue swelling consistent with [id number] osteoarthritis. CT scan of the pelvis revealed no acute changes and bone scan from today revealed evidence of degenerative changes at the wrists, right shoulder, thoracic spine, and lumbar spine. LABORATORY DATA: CBC revealed white blood cells of 13.9 thousand, hemoglobin 10.8, hematocrit 32.1, and platelet count 350,000. Chemistry revealed sodium of 132, potassium 3.9, chloride 98, CO2 of 24, BUN 14, creatinine 0.6, glucose 92, and calcium 8.1. Coagulation revealed a PT of 12.2 and INR 1.2. Urinalysis revealed no evidence of urinary tract infection. IMPRESSION: 1. Diffuse moderate to severe aches and pains, likely due to the diffuse degenerative arthritic changes of the joints in the upper and lower extremities and spine. 2. Pneumonia. 3. Bilateral pulmonary emboli. 4. Multiple medical problems include hypothyroidism, gastroesophageal reflux disease, and hyponatremia. RECOMMENDATIONS: Continue with current management initiated by Dr. Watkins for pneumonia and for degenerative changes of the joints and spine. M Alexa CORONA MD DR: FAYE/yvonne JOB#: [id number] / [id number]
[2019-11-22] MEDS ORDERED: CALCIUM CARBONATE 500 MG TAB.CHEW PO PRN (13:45)
[2019-11-22] MEDS: AZITHROMYCIN 250 MG TABLET. PO SCH (17:11)
[2019-11-22 20:00] VITALS: BP 118/63
--- NOTE | 2019-11-22 20:39 | PN ---
DATE: SUBJECTIVE: The patient is resting, slightly propped up in bed, in no apparent distress. She is definitely much improved. She is now able to lift her upper extremities without difficulty. The swelling on her right wrist has largely subsided. 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 PHYSICAL EXAMINATION: GENERAL: On examining her, she looked well and was clearly in no apparent respiratory distress. No pallor, jaundice, cyanosis or thyromegaly. No jugular venous distention. VITAL SIGNS: Her heart rate was 81, blood pressure was 122/66, temperature 98.1, respiratory rate was 18 and oxygen saturation was 92%. HEAD, EYES, EARS, NOSE AND THROAT: Normocephalic, atraumatic. NECK: Supple. HEART: Showed normal first and second heart sounds. No gallop, rub or murmur. CHEST: Clear to auscultation. No crepitation or rhonchi. ABDOMEN: Distended, soft, nontender. NEUROLOGIC: She is awake, alert, responding appropriately. All cranial nerves are intact. EXTREMITIES: She definitely is able to move her right upper extremity without difficulty. LABORATORY DATA: Her white cell count was 13,000, hemoglobin 11, hematocrit 33, MCV 90 and platelet count 306,000. Her sedimentation rate was only 13 mm per hour. Her serum sodium was 131, potassium 3.5, chloride 97, bicarbonate 24, anion gap of 10, BUN 13, creatinine 0.6, estimated GFR was 94 mL per minute. Her glucose 131, calcium was 8.4. Her C-reactive protein was 172 mg/dL, total protein was 5.9, albumin was 2.1. Her blood cultures are so far negative. ASSESSMENT: 1. Community-acquired pneumonia, responding. Her white cell count is slightly down. She is afebrile. 2. Bilateral pulmonary emboli for which she continues to be on apixaban. 3. Severe degenerative disk disease, particularly the lumbar spine. 4. 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 5. She has large right elbow effusion with surrounding soft tissue, but no fracture is appreciated. She also has chondrocalcinosis of the right wrist with the senescent. PLAN: To continue IV antibiotic and stop the IV fluids, start her on IV steroids. We did a bone scan, which showed that all the activities of the rest right shoulder, T spine and lumbar spine are probably generative, but if there is persistent concern, followup x-rays could be of benefit. ELENA DOCKERY MD DR: MALIA/yvonne JOB#: [id number] / [id number]
[2019-11-22] MEDS ORDERED: PRIMIDONE 50 MG TABLET PO SCH (21:00)
[2019-11-23] MEDS: LEVOTHYROXINE 25 MCG TABLET. PO SCH (06:08)
[2019-11-23 06:32] VITALS: BP 110/60
[2019-11-23] MEDS: APIXABAN 5 MG TABLET. PO SCH ×2 (09:12→20:52)
[2019-11-23] MEDS: LACTOBACILLUS RHAMNOSUS GG 1 CAPSULE. PO SCH ×2 (09:12→20:52)
[2019-11-23] MEDS: ATORVASTATIN CALCIUM 20 MG TABLET PO SCH (09:12)
[2019-11-23] MEDS: predniSONE 20 MG TABLET PO SCH (09:13)
[2019-11-23] MEDS: amLODIPine BESYLATE 10 MG TABLET PO SCH (09:13)
[2019-11-23] MEDS: AZITHROMYCIN 250 MG TABLET. PO SCH (17:00)
[2019-11-23 19:39] VITALS: BP 127/69
[2019-11-23] MEDS: CEFDINIR 300 MG CAPSULE PO SCH (20:52)
[2019-11-23] MEDS ORDERED: PRIMIDONE 50 MG TABLET PO SCH (21:00)
--- NOTE | 2019-11-24 02:19 | PN ---
DATE: 11/22/2019 SUBJECTIVE: The patient denies any new medical or neurological complaints. She stated her pain and swelling of the right upper extremity has been better. She moves her right upper extremity better than yesterday. Extensive workup of x-rays and CT scan revealed evidence of degenerative joint and disk disease of the spine. The x-ray of the right wrist revealed chondrocalcinosis. She denies chest pain, shortness of breath or palpitation. The patient has had intermittent tremor of the right upper extremity for last 2 years. The tremor usually aggravated by motion and using the right upper extremity, mainly during feeding herself or using her right hand. OBJECTIVE: GENERAL: Well-developed, well-nourished female, not in acute distress. VITAL SIGNS: Blood pressure 110/65, respiratory rate 18, pulse is 91 and regular, oxygen 94% on 2 liters by nasal cannula. HEENT: Normocephalic, atraumatic, otherwise unremarkable. NECK: Supple. Negative for carotid bruit, lymphadenopathy or thyromegaly. LUNGS: With diminished breath sounds, but no rhonchi or rales. CARDIOVASCULAR: Regular rate and rhythm, normal S1, S2. There is no murmur. ABDOMEN: Soft. Bowel sounds positive. No palpable mass, organomegaly or tenderness. EXTREMITIES: Negative for cyanosis or clubbing. However, she does have arthritic changes of the hands and mild swelling of the right forearm. LABORATORY DATA: CBC revealed white blood cells of 13,000, hemoglobin 10.9, hematocrit 32.6, platelet count 386,000. Chemistry revealed sodium 131, potassium 3.5, chloride 97, CO2 of 24, BUN 13, creatinine 0.6 and glucose 131. Calcium 8.4. CRP is high at 172.9. IMPRESSION: 1. Pneumonia. 2. Bilateral pulmonary embolism diagnosed in 10/2019, on Eliquis. 3. Moderate to severe arthralgia and swelling of the right upper extremity secondary to degenerative joints and chondrocalcinosis of the wrist -- improved. 4. 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 RECOMMENDATIONS: 1. Continue with current management initiated by Dr. Watkins. 2. We will start the patient on primidone at 25 mg at bedtime for the tremor. M Alexa CORONA MD DR: FAYE/yvonne JOB#: [id number] / [id number]
--- NOTE | 2019-11-24 02:19 | PN ---
DATE: 11/23/2019 SUBJECTIVE: The patient denies any new medical or neurological complaints. She stated her pain and swelling of the right upper extremity has been better since being on prednisone. She stated the tremor of the right upper extremity is improving by primidone. The patient has been using her right upper extremity without significant pain. OBJECTIVE: GENERAL: Well-developed, well-nourished female, not in acute distress. VITAL SIGNS: Blood pressure 110/60, respiratory rate 18, pulse is 75 and regular, oxygen saturation is 97% on room air, and temperature 98. HEENT: Normocephalic, atraumatic, otherwise unremarkable. NECK: Supple. Negative for carotid bruit, lymphadenopathy or thyromegaly. LUNGS: Clear to A and P. CARDIOVASCULAR: Regular rate and rhythm, normal S1, S2. ABDOMEN: Soft. Bowel sounds positive. EXTREMITIES: Negative for cyanosis, clubbing and significantly reduced swelling. NEUROLOGICAL: Normal mental status and intact cranial nerves. Deep tendon reflexes were symmetric and active without pathologic responses. Gait not tested. Motor examination revealed no focal muscle bulk was seen. The tone is normal. The strength is 4/5 throughout. Sensory examination revealed normal pinprick, light touch, vibratory and position senses. Deep tendon reflexes were symmetric and hypoactive with absent Achilles responses. Gait not tested. IMPRESSION: 1. Pneumonia. 2. Bilateral pulmonary emboli, on Eliquis. 3. Xbzmoplq-sp-[id number] degenerative disk and joint disease. 4. 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 RECOMMENDATIONS: 1. We will continue with current management initiated by Dr. Watkins. 2. Increase primidone to 50 mg at bedtime. M Alexa CORONA MD DR: FAYE/yvonne JOB#: [id number] / [id number]
--- NOTE | 2019-11-24 02:38 | PN ---
DATE: 11/23/2019 SUBJECTIVE: The patient is resting slightly propped up in bed, in no apparent distress. All the swelling of her right wrist and right elbow has completely subsided. Her range of motion has improved. She was able to move all her extremities without difficulty. She continued to have some pain in her left lower extremity. PHYSICAL EXAMINATION: GENERAL: When I examined her, she looked pale, but no jaundice, cyanosis or thyromegaly. No jugular venous distention. No lower limb edema. VITAL SIGNS: Her heart rate was 75, blood pressure was 110/60, temperature 98, respiratory rate 20, and oxygen saturation was 99%. HEAD, EYES, EARS, NOSE AND THROAT: Normocephalic, atraumatic. NECK: Supple. HEART: Showed normal first and second heart sounds. No gallop, rub or murmur. CHEST: Clear to auscultation. No crepitation or rhonchi. Does have bilateral lower lobe infiltrate posteriorly. ABDOMEN: Distended, soft, nontender. NEUROLOGIC: She was awake, alert, responding appropriately. All cranial nerves intact. She moves extremities, although she continued to have difficulty walking and pain, particularly in her left lower extremity, although the swelling and range of movement has much improved, especially her right wrist and right elbow. LABORATORY DATA: As of yesterday showed a white cell count of 13,000, hemoglobin 11, hematocrit 33, MCV 90, and platelet count of 386,000. Serum sodium 131, potassium 3.5, chloride 97, bicarbonate 24, anion gap of 10, BUN 13, creatinine 0.6, estimated GFR was 94 mL per minute. Her glucose 131, calcium was 8.4 and C-reactive protein was extremely high at 173 mg/dL. ASSESSMENT: 1. Community-acquired pneumonia, responding. Her white cell count is slightly down. She is afebrile. 2. Bilateral pulmonary emboli for which she continues to be on apixaban. 3. Severe degenerative disk disease, particularly in the lumbar spine. 4. 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 5. She has large right elbow effusion with surrounding soft tissue swelling, but no fracture is appreciated. She also has chondrocalcinosis of the right wrist which is senescent; however, all the swelling, redness and limitation of movement of her right wrist and right elbow has mostly subsided. PLAN: To discontinue her IV Rocephin and switch her to cefdinir. I will discontinue the IV fluid. She will be discharged tomorrow to [facility] to continue the process of rehabilitation. ELENA DOCKERY MD DR: MALIA/yvonne JOB#: [id number] / [id number]
[2019-11-24 05:54] VITALS: BP 128/69
[2019-11-24] MEDS: LEVOTHYROXINE 25 MCG TABLET. PO SCH (06:05)
[2019-11-24 06:36] LABS: HEMATOCRIT 30.2 % (36.0-47.0); HEMOGLOBIN 10.1 g/dL (12.0-15.5); RED BLOOD COUNT 3.35 x10^6/uL (3.50-5.40); RED CELL DISTRIBUTION WIDTH 14.4 % (11.5-14.5); WHITE BLOOD COUNT 12.5 x10^3/uL (4.0-11.0)
[2019-11-24 06:49] LABS: CALCIUM 8.2 mg/dL (8.5-10.1); CREATININE 0.5 mg/dL (0.6-1.0); GFR 116.4; POTASSIUM 3.7 mmol/L (3.5-5.1)
[2019-11-24] MEDS: ATORVASTATIN CALCIUM 20 MG TABLET PO SCH (07:57)
[2019-11-24] MEDS: amLODIPine BESYLATE 10 MG TABLET PO SCH (07:58)
[2019-11-24] MEDS: APIXABAN 5 MG TABLET. PO SCH (07:58)
[2019-11-24] MEDS: predniSONE 20 MG TABLET PO SCH (07:58)
[2019-11-24] MEDS: AZITHROMYCIN 250 MG TABLET. PO SCH (07:58)
[2019-11-24] MEDS: CEFDINIR 300 MG CAPSULE PO SCH (07:58)
[2019-11-24] MEDS: LACTOBACILLUS RHAMNOSUS GG 1 CAPSULE. PO SCH (07:59)
--- NOTE | 2019-11-24 09:22 | NUR ---
PT doing well today. Pt is ambulating with no pain. Pt is performing ROM exercises. PT is able to verbalize understanding of discharge to [place]. Will call daughter when know time. Sharad GANT
[2019-11-24 10:42] VITALS: BP 118/70
--- NOTE | 2019-11-24 10:46 | NUR ---
Talked with Dr lawton and he said ok for pt to be on primidone. Sharad GANT
--- NOTE | 2019-11-24 11:51 | NUR ---
Report given to [facility]. Verbalized understanding of discharge instructions. To picking tech pt at 1315. Pt to continue cefdinir, azithromycin and prednisone taper. Daughter called and notified what time pt will be arriving. Sharad GANT
--- NOTE | 2019-11-24 13:15 | NUR ---
pt LEFT VIA WITH TRANSPORT FOR [place]. DAUGHTER ALSO HERE. Skylar GANT
--- NOTE | 2019-11-24 13:21 | DS ---
DATE OF DISCHARGE: 11/24/2019 DISCHARGE SUMMARY HOSPITAL COURSE: The patient is an 89-year-old female patient who was admitted originally with severe back pain. She also complained of her pain in her neck and her right shoulder, elbow and wrist and initial investigation showed that she has leukocytosis, hyponatremia, hypokalemia and chest x-ray showed that she has bilateral lung infiltrate and therefore, she was started on antibiotic for community-acquired pneumonia. She was extensively investigated given her multiple complaints and has had a CT scan of the thoracic cervical and lumbar spine as well as chest x-ray, CT scan of the pelvis and CT scan of the head, x-ray of the right wrist, right shoulder, and right elbow as well as her bone scan. Likely, the bone scan showed no evidence of any fracture, but rather all the activities of the wrist, right shoulder, T spine and L spine, all probably degenerative. X-ray of her right wrist joint showed that she has chondrocalcinosis of the right wrist may be senescent finding. She has also [id number] osteoarthritis within the hand and wrist as above. She has also advanced right rotator cuff arthropathy with moderate to severe glenohumeral and acromioclavicular osteoarthritis and large elbow effusion surrounding soft tissue swelling. We did start her on steroids and her symptoms have dramatically improved. The patient is on apixaban and we did not start her on nonsteroidal anti-inflammatory medication and we will continue with a tapering course of steroids. She obviously continued to have some back pain and difficulty with her right upper extremity and general weakness and debility and therefore, a decision was made to transfer her to [facility] to continue the process of rehabilitation. PHYSICAL EXAMINATION: GENERAL: When I saw her today, she was well and was clearly in no apparent respiratory distress. No pale, but no jaundice, cyanosis or thyromegaly. No jugular venous distension. No limb edema. VITAL SIGNS: Her heart rate was 78, blood pressure was 118/70, temperature was 97.5, respiratory rate was 20, and oxygen saturation was 99%. HEAD, EYES, EARS, NOSE AND THROAT: Showed normocephalic, atraumatic. NECK: Supple. HEART: Showed normal first and second heart sounds. No gallop or murmur. CHEST: Clear to auscultation. No crepitation or rhonchi. ABDOMEN: Distended, soft, nontender. NEUROLOGIC: She was awake, alert, and responding appropriately. LABORATORY DATA: This morning showed a white cell count 12,500, hemoglobin 10, hematocrit 30, MCV 90 and platelet count 423,000. Serum sodium of 132, potassium 3.7, chloride 100, bicarbonate 26, anion gap of 6, BUN 14, creatinine 0.5, estimated GFR was 160 mL per minute. Her glucose was 85, calcium was 8.2. C-reactive protein was high at 172 mg/dL. DISCHARGE MEDICATIONS: She was discharged to [place] to continue on cefdinir 300 mg twice a day, primidone 50 mg at bedtime, Tums 500 mg after meals, prednisone tapering course starting at 40 mg p.o. daily, azithromycin 250 mg once a day, lactobacillus rhamnosus 1 capsule twice a day, atorvastatin 40 mg at bedtime, amlodipine besylate 10 mg once a day, levothyroxine sodium 25 mcg once a day, apixaban 5 mg twice a day, tizanidine 4 mg at bedtime as needed and acetaminophen 650 mg every 4 hours as needed. FINAL DISCHARGE DIAGNOSES: 1. Community-acquired pneumonia, responding very well. She is afebrile. Her white cell count is slightly elevated due to steroids. So far, all her blood cultures are negative. 2. Bilateral pulmonary emboli for which she continues to be on apixaban. 3. Severe degenerative disk disease, particularly in the lumbar area. 4. 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 5. Large elbow effusion with surrounding soft tissue swelling, resolving. 6. 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 OTHER MEDICAL PROBLEMS: Include hypertension, hypothyroidism, and hyperlipidemia. ELENA DOCKERY MD DR: MALIA/yvonne JOB#: [id number] / [id number]
== END 2019-11-24 13:30 | DRG 871 ==
LOC: ER 09:02 → ICU 12:16
PROVIDERS: ADMIT Internal Medicine; ATTEND Internal Medicine
DX: A41.9 Sepsis, unspecified organism (principal); J18.9 Pneumonia, unspecified organism; E43 Unspecified severe protein-calorie malnutrition; E87.1 Hypo-osmolality and hyponatremia; E78.00 Pure hypercholesterolemia, unspecified; I10 Essential (primary) hypertension; E03.9 Hypothyroidism, unspecified; Z96.653 Presence of artificial knee joint, bilateral; Z96.642 Presence of left artificial hip joint; E86.0 Dehydration; G89.29 Other chronic pain; K57.90 Diverticulosis of intestine, part unspecified, without perforation or abscess without bleeding; E78.5 Hyperlipidemia, unspecified; M19.019 Primary osteoarthritis, unspecified shoulder; K21.9 Gastro-esophageal reflux disease without esophagitis; E87.6 Hypokalemia; T38.0X5A Adverse effect of glucocorticoids and synthetic analogues, initial encounter; M51.36 Other intervertebral disc degeneration, lumbar region; M11.231 Other chondrocalcinosis, right wrist; I25.10 Atherosclerotic heart disease of native coronary artery without angina pectoris; M11.239 Other chondrocalcinosis, unspecified wrist; M81.0 Age-related osteoporosis without current pathological fracture; Z88.8 Allergy status to other drugs, medicaments and biological substances; Z86.711 Personal history of pulmonary embolism; Z79.01 Long term (current) use of anticoagulants; Z86.73 Personal history of transient ischemic attack (TIA), and cerebral infarction without residual deficits; Y92.89 Other specified places as the place of occurrence of the external cause
CPT/HCPCS: 36415; 70450; 71045; 72125; 72128; 72131; 72192; 73030; 73080; 73110; 78306; 80048; 80053; 81001; 83605; 83690; 83735; 83880; 84484; 85007; 85025; 85027; 85610; 85651; 85730; 86140; 87040; 93005; 96365; A9503; J0456; J0696; J3010; J3475; J7050; J7512; P9612; 97110; 97116; 97530; 97535; 99285-25; J7030

== ENCOUNTER → 2020-05-26 | Outpatient (CLI) | payer MEDICARE ==
[~2020-05-26] MED LIST changes: +LEVO25TA4 PO
--- NOTE | 2020-05-26 16:01 | RAD ---
EXAM: DUAL ENERGY X-RAY ABSORPTIOMETRY (DEXA). HISTORY: Postmenopausal screening. FINDINGS: The lowest measured T-score is -2.7 in the right femoral neck, based on a bone mineral density of 0.659 g/cm^2. Refer to the worksheets for full detail. In comparison with the prior study of 05/06/2007, average bone mineral density at the lumbar spine has changed +2.4%, while the average density at the hips has changed -15.3%. IMPRESSION: Osteoporosis. Bone mineral density yields a T-score of -2.5 or less. Fracture risk is high. FRAX was not calculated. METHODOLOGY: Dual energy x-ray absorptiometry was performed to measure bone mineral density. The following analysis is based on the 2019 Official Positions of the International Society for Clinical Densitometry: Measurements of the hips and the average of L1-L4 are preferred. When the spine and/or hip cannot be feasibly measured or interpreted, or in the setting of hyperparathyroidism, distal radial bone mineral density may be measured. The lumbar spine T-score is based on the average bone mineral density of L1-L4. In the setting of artifact or anatomic abnormality, some lumbar levels may be excluded, and the remaining levels used for calculation. A single lumbar level is not used for diagnosis, and if only a single level is available for assessment, another anatomic site will be used to assign a diagnosis. The hip T-score is based on the bone mineral density measurement of the femoral neck or total proximal femur of either side, whichever is lowest. Bilateral mean values are not used for diagnosis. The forearm T-score is derived from 33% of the distal radius of the nondominant forearm. For postmenopausal and perimenopausal women, and men age 50 or older, of all ethnic groups, T-scores are calculated through comparison of the current measurement with the NHANES III database standard for females aged 20-29 years. The lowest T-score of the evaluated anatomic sites is used to assign a diagnosis based on the World Health Organization densitometric classification. In premenopausal females and males younger than age 50, a Z-score is calculated based on population specific reference data for patient sex and self-reported ethnicity. Electronically signed by: Tatiana Kirkland MD (05/26/2020 3:58 PM) [id number]
== END ==
LOC: DXRAD 15:05
PROVIDERS: ATTEND Family Medicine
DX: Z13.820 Encounter for screening for osteoporosis (principal); Z00.00 Encounter for general adult medical examination without abnormal findings; M81.0 Age-related osteoporosis without current pathological fracture
CPT/HCPCS: 77080

== ENCOUNTER → 2020-10-19 | Outpatient (CLI) | payer MEDICARE ==
[~2020-10-19] MED LIST changes: +AMLO-187 PO; -AMLO10TA8 PO
--- NOTE | 2020-10-19 19:03 | RAD ---
EXAM: Abdomen, 2 views. HISTORY: Pain. COMPARISON: None. FINDINGS: 2 views of the abdomen are obtained. There is a large amount of stool within the colon and rectal vault. There is constipation within the pelvis likely due to calcified uterine fibroids. There is no evidence of bowel obstruction. 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 There is left basilar pleural parenchymal scarring. There is a small hiatal hernia. IMPRESSION: 1. Suspected constipation. 2. Calcified uterine fibroids. Electronically signed by: Dana Mclain MD (10/19/2020 7:00 PM) [facility]
== END ==
LOC: DXRAD 14:58
PROVIDERS: ATTEND Family Medicine
DX: K44.9 Diaphragmatic hernia without obstruction or gangrene (principal); K59.00 Constipation, unspecified; D25.9 Leiomyoma of uterus, unspecified; J98.4 Other disorders of lung; Z96.611 Presence of right artificial shoulder joint
CPT/HCPCS: 74019